=== PATIENT | female | born 1985 | race Caucasian/White ===

== ENCOUNTER → 2018-01-17 19:50 | Outpatient (CLI) | payer OTHER, SELFPAY ==
[2018-01-21 11:33] LABS: HPV APTIMA, High Risk Negative (Negative)
== END ==
PROVIDERS: Family Provider Family Medicine; PCP Family Medicine; Visit Provider Obstetrics & Gynecology
DX: Z12.4 Encounter for screening for malignant neoplasm of cervix (principal)
CPT/HCPCS: 88175; G0145

== ENCOUNTER → 2020-06-19 | Outpatient (CLI) | payer OTHER, SELFPAY ==
[2020-06-17 08:20] VITALS: BMI 43.0
--- NOTE | 2020-06-19 14:49 | US_ITS ---
STUDY: ULTRASOUND TRANSVAGINAL CLINICAL: Female, 34 years old. PELVIC PAIN TECHNIQUE: Transvaginal and transabdominal COMPARISON: None. FINDINGS: Normal uterine size measuring 9.5 x 4.8 x 4.5 cm.. There are no myometrial masses. Normal endometrial thickness measuring 14 mm. The endometrium is hyperechoic. There are no endometrial masses, and there is no fluid in the endometrial cavity. Normal uterine cervix. Normal right ovary, measuring 3.1 x 3.0 x 2.3 cm. Normal left ovary, measuring 3.4 x 2.5 x 2.3 cm. There is no free fluid in the pelvis. Polycystic ovary disease: No. US/Transvaginal Non- IMPRESSION: Study within normal limits. Electronically Signed: Hieu Waddell MD at 16:08 EDT , Service support ,
--- NOTE | 2020-06-19 14:49 | US_ITS ---
STUDY: ULTRASOUND TRANSVAGINAL CLINICAL: Female, 34 years old. PELVIC PAIN TECHNIQUE: Transvaginal and transabdominal COMPARISON: None. FINDINGS: Normal uterine size measuring 9.5 x 4.8 x 4.5 cm.. There are no myometrial masses. Normal endometrial thickness measuring 14 mm. The endometrium is hyperechoic. There are no endometrial masses, and there is no fluid in the endometrial cavity. Normal uterine cervix. Normal right ovary, measuring 3.1 x 3.0 x 2.3 cm. Normal left ovary, measuring 3.4 x 2.5 x 2.3 cm. There is no free fluid in the pelvis. Polycystic ovary disease: No. US/Pelvic (Non ) IMPRESSION: Study within normal limits. Electronically Signed: Hieu Waddell MD at 16:08 EDT , Service support ,
== END | disposition home or self-care (01) ==
PROVIDERS: PCP Family Medicine; Referring Provider Nurse Practitioner Women's Health; Visit Provider Nurse Practitioner Women's Health
DX: R10.2 Pelvic and perineal pain (principal); E28.2 Polycystic ovarian syndrome
CPT/HCPCS: 76830; 76856; 93976

== ENCOUNTER → 2021-08-09 07:25 | Outpatient (CLI) | payer OTHER, SELFPAY ==
[2021-08-09 08:28] LABS: Cholesterol 197 mg/dL (200); Glucose 93 mg/dL (74-106); High Density Lipoprotein 50 mg/dL; Thyroid Stim Hormone (TSH) 1.15 uIU/mL (0.358-3.74); Triglycerides 69 mg/dL; Very Low Density Lipoprotein 14 mg/dL (5-40)
== END ==
PROVIDERS: PCP Family Medicine; Referring Provider Obstetrics & Gynecology; Visit Provider Obstetrics & Gynecology
DX: Z13.29 Encounter for screening for other suspected endocrine disorder (principal); Z13.220 Encounter for screening for lipoid disorders; Z13.1 Encounter for screening for diabetes mellitus
CPT/HCPCS: 36415; 80061; 82947; 84443

== ENCOUNTER → 2022-08-14 | Outpatient (CLI) | payer OTHER, SELFPAY ==
[2022-08-23 09:24] LABS: HPV APTIMA, High Risk Negative (Negative)
== END | disposition home or self-care (01) ==
LOC: LABSPEC 17:05
PROVIDERS: PCP Family Medicine; Referring Provider Obstetrics & Gynecology; Visit Provider Obstetrics & Gynecology
DX: Z12.4 Encounter for screening for malignant neoplasm of cervix (principal)
CPT/HCPCS: 87624; 88175; G0145

== ENCOUNTER → 2022-08-22 | Outpatient (CLI) | payer OTHER, SELFPAY ==
[2022-08-22 09:46] LABS: Estradiol 161.3 pg/mL
[2022-08-24 16:52] LABS: Glucose 79 mg/dL (74-106)
[2022-08-24 17:20] LABS: Hemoglobin A1c 5.5 % (3.8-5.6)
[2022-08-28 15:30] LABS: Testosterone Free 1.3 pg/mL (0.0-4.2)
[2022-09-01 13:08] LABS: Testosterone, % Free 2.38 % (0.50-2.80); Testosterone, Free 0.69 ng/dL (0.10-0.85); Testosterone, Total 29 ng/dL (8-60)
== END | disposition home or self-care (01) ==
LOC: LAB 08:21
PROVIDERS: PCP Family Medicine; Visit Provider Obstetrics & Gynecology
DX: E28.2 Polycystic ovarian syndrome (principal); Z13.1 Encounter for screening for diabetes mellitus
CPT/HCPCS: 36415; 82627; 82670; 82947; 83036; 84402; 84403; 84443; 82626

== ENCOUNTER → 2022-08-27 | Outpatient (CLI) | payer OTHER, SELFPAY ==
--- NOTE | 2022-08-27 07:31 | US_ITS ---
STUDY: ULTRASOUND OF THE FEMALE PELVIS - LIMITED REASON FOR EXAM: Female, 37 years old history of polycystic ovaries. TECHNIQUE: Transabdominal and Transvaginal TECHNICAL QUALITY: Adequate. COMPARISON: Comparison is made with prior examination dated 06/19/2020. FINDINGS: The uterus is anteverted and is in a midline position. The uterus measures 9.4 x 4.9 x 4.7 cm. Normal uterine cervix. The endometrium measures 8 mm in thickness, and is heterogeneous (striated). There is no demonstrated endometrial mass. There is no demonstrated myometrial mass. The right ovary measures 2.3 cm x 3.3 cm x 3.5 cm. There is no right ovarian cyst or ovarian mass. There is no visualized right adnexal mass or complex lesion. There is normal arterial and normal venous vascularity. The left ovary measures 2.2 cm x 2.3 cm x 2.8 cm. Multiple small subcortical follicles are seen in the left ovary suggestive of polycystic ovary. There is no visualized left adnexal mass or complex lesion. There is normal arterial and normal venous vascularity. There is no fluid in the cul-de-sac. US/Transvaginal Non- IMPRESSION: Findings consistent with polycystic ovary on the left side. Electronically Signed: Davis Smith MD at 14:03 EDT ,
--- NOTE | 2022-08-27 07:31 | US_ITS ---
STUDY: ULTRASOUND OF THE FEMALE PELVIS - LIMITED REASON FOR EXAM: Female, 37 years old history of polycystic ovaries. TECHNIQUE: Transabdominal and Transvaginal TECHNICAL QUALITY: Adequate. COMPARISON: Comparison is made with prior examination dated 06/19/2020. FINDINGS: The uterus is anteverted and is in a midline position. The uterus measures 9.4 x 4.9 x 4.7 cm. Normal uterine cervix. The endometrium measures 8 mm in thickness, and is heterogeneous (striated). There is no demonstrated endometrial mass. There is no demonstrated myometrial mass. The right ovary measures 2.3 cm x 3.3 cm x 3.5 cm. There is no right ovarian cyst or ovarian mass. There is no visualized right adnexal mass or complex lesion. There is normal arterial and normal venous vascularity. The left ovary measures 2.2 cm x 2.3 cm x 2.8 cm. Multiple small subcortical follicles are seen in the left ovary suggestive of polycystic ovary. There is no visualized left adnexal mass or complex lesion. There is normal arterial and normal venous vascularity. There is no fluid in the cul-de-sac. US/Pelvic (Non ) IMPRESSION: Findings consistent with polycystic ovary on the left side. Electronically Signed: Davis Smith MD at 14:03 EDT ,
== END | disposition home or self-care (01) ==
PROVIDERS: PCP Family Medicine; Visit Provider Obstetrics & Gynecology
DX: E28.2 Polycystic ovarian syndrome (principal)
CPT/HCPCS: 76830; 76856

== ENCOUNTER → 2023-03-27 | Outpatient (CLI) | payer OTHER, SELFPAY ==
[2023-03-27 09:56] LABS: Cholesterol 178 mg/dL (200); High Density Lipoprotein 57 mg/dL; Triglycerides 60 mg/dL; Very Low Density Lipoprotein 12 mg/dL (5-40)
[2023-03-30 13:08] LABS: Vitamin D 1,25-Dihydroxy 31.1 pg/mL (24.8-81.5)
== END | disposition home or self-care (01) ==
PROVIDERS: PCP Family Medicine; Referring Provider Obstetrics & Gynecology; Visit Provider Obstetrics & Gynecology
DX: E28.2 Polycystic ovarian syndrome (principal)
CPT/HCPCS: 36415; 80061; 82652

== ENCOUNTER → 2023-07-06 | Outpatient (CLI) | payer BC, SELFPAY | END | disposition home or self-care (01) | LOC: SL 09:16 | PROVIDERS: PCP Family Medicine; Referring Provider Nurse Practitioner Acute Care; Visit Provider Nurse Practitioner Acute Care | DX: G47.10 Hypersomnia, unspecified (principal) | CPT/HCPCS: 95806 ==

== ENCOUNTER 2024-03-13 11:30 | Outpatient (RCR) | payer BC, SELFPAY | END 2024-03-21 23:59 | LOC: NS 11:30 | PROVIDERS: PCP Family Medicine; Referring Provider Physician Assistant; Visit Provider Physician Assistant | DX: Z71.3 Dietary counseling and surveillance (principal); E66.01 Morbid (severe) obesity due to excess calories; Z68.42 Body mass index [BMI] 45.0-49.9, adult | CPT/HCPCS: 97802; 97803 ==

== ENCOUNTER 2024-04-19 08:00 | Outpatient (RCR) | payer BC, SELFPAY | END 2024-04-21 23:59 | LOC: NS 08:00 | PROVIDERS: PCP Family Medicine; Referring Provider Physician Assistant; Visit Provider Physician Assistant | DX: Z71.3 Dietary counseling and surveillance (principal); E66.01 Morbid (severe) obesity due to excess calories; Z68.42 Body mass index [BMI] 45.0-49.9, adult | CPT/HCPCS: 97803 ==

== ENCOUNTER 2024-05-03 16:22 | Outpatient (RCR) | payer BC, SELFPAY | END 2024-05-21 23:59 | LOC: NS 16:22 | PROVIDERS: PCP Family Medicine; Referring Provider Physician Assistant; Visit Provider Physician Assistant | DX: Z71.3 Dietary counseling and surveillance (principal); E66.01 Morbid (severe) obesity due to excess calories; Z68.42 Body mass index [BMI] 45.0-49.9, adult | CPT/HCPCS: 97803 ==

== ENCOUNTER 2024-06-12 16:30 | Outpatient (RCR) | payer BC, SELFPAY | END 2024-06-21 23:59 | LOC: NS 16:30 | PROVIDERS: PCP Family Medicine; Referring Provider Physician Assistant; Visit Provider Physician Assistant | DX: Z71.3 Dietary counseling and surveillance (principal); E66.01 Morbid (severe) obesity due to excess calories; Z68.42 Body mass index [BMI] 45.0-49.9, adult | CPT/HCPCS: 97803 ==

== ENCOUNTER 2024-07-10 16:30 | Outpatient (RCR) | payer BC, SELFPAY | END 2024-07-22 23:59 | LOC: NS 16:30 | PROVIDERS: PCP Family Medicine; Referring Provider Physician Assistant; Visit Provider Physician Assistant | DX: Z71.3 Dietary counseling and surveillance (principal); E66.01 Morbid (severe) obesity due to excess calories; Z68.42 Body mass index [BMI] 45.0-49.9, adult | CPT/HCPCS: 97803 ==

== ENCOUNTER 2024-08-07 16:32 | Outpatient (RCR) | payer BC, SELFPAY | END 2024-08-21 23:59 | LOC: NS 16:32 | PROVIDERS: PCP Family Medicine; Referring Provider Physician Assistant; Visit Provider Physician Assistant | DX: Z71.3 Dietary counseling and surveillance (principal); E66.01 Morbid (severe) obesity due to excess calories; Z68.42 Body mass index [BMI] 45.0-49.9, adult | CPT/HCPCS: 97803 ==

== ENCOUNTER 2024-08-29 08:34 | Outpatient (RCR) | payer BC, SELFPAY | END 2024-09-21 23:59 | LOC: NS 08:34 | PROVIDERS: PCP Family Medicine; Referring Provider Physician Assistant; Visit Provider Physician Assistant | DX: Z71.3 Dietary counseling and surveillance (principal); E66.01 Morbid (severe) obesity due to excess calories; Z68.42 Body mass index [BMI] 45.0-49.9, adult | CPT/HCPCS: 97803 ==

== ENCOUNTER → 2024-08-30 | Outpatient (CLI) | payer BC, SELFPAY ==
[2024-08-30 07:21] LABS: Absolute Lymphocyte Count 1.57 X10^3/uL (0.83-4.51); Absolute Neutrophil Count 3.7 X10^3/uL (2.0-7.7); Basophil# 0.05 X10^3/uL; Basophil% 0.8 % (0-1); Eosinophil# 0.13 X10^3/uL; Eosinophils% 2.2 % (0-5); Hematocrit 39.3 % (37-47); Hemoglobin 12.1 g/dL (12.0-15.0); Lymphocyte # 1.57 X10^3/ul (0.83-4.51); Lymphocyte % 26.6 % (19-41); Mean Corp Hgb Conc 30.8 g/dL (32-36); Mean Corpuscular Volume 81.2 fL (81-99); Monocyte# 0.42 X10^3/uL; Monocyte% 7.1 % (0-10); NRBC Flagged by Analyzer 0 % (0-5); Neutrophil # 3.71 X10^3/uL (2.7-7.7); Platelet Count 350 K/mm3 (150-450); RBC Distribution Width CV 15.5 % (11.6-14.6); RBC Distribution Width SD 46.1 fl (35.1-43.9); Red Blood Count 4.84 M/mm3 (4.2-5.4); White Blood Count 5.9 K/mm3 (4.4-11.0)
[2024-08-30 07:38] LABS: ALB/GLOB Ratio 1.1 RATIO (0.9-2.4); AST(SGOT) 13 U/L (15-37); Alanine Aminotransfer ALT/SGPT 22 U/L (13-56); Albumin, Serum 3.6 g/dL (3.2-5.0); Alkaline Phosphatase 70 U/L (45-117); Anion Gap 6 (5-15); BUN 18 mg/dL (7-18); BUN/Creat Ratio 21.4 RATIO (10-20); Calcium,Total 8.9 mg/dL (8.5-10.1); Chloride 110 mmol/L (98-107); Cholesterol 167 mg/dL (200); Creatinine, Serum 0.84 mg/dL (0.55-1.02); EST Glomerular Filtration Rate 81 mL/min (>60); Est Glom Filt Rate - Afr Amer 98 mL/min (>60); Globulin 3.3 g/dL (2.2-4.2); Glucose 106 mg/dL (74-106); High Density Lipoprotein 55 mg/dL; Potassium 4.3 mmol/L (3.5-5.1); Protein, Total 6.9 g/dL (6.4-8.2); Sodium Level 140 mmol/L (136-145); Triglycerides 82 mg/dL; Very Low Density Lipoprotein 16 mg/dL (5-40)
[2024-08-30 08:12] LABS: Vitamin D,25 Hydroxy 43.6 ng/mL
[2024-08-30 09:46] LABS: Hemoglobin A1c 5.4 % (3.8-5.6)
== END | disposition home or self-care (01) ==
PROVIDERS: PCP Family Medicine; Referring Provider Obstetrics & Gynecology; Visit Provider Obstetrics & Gynecology
DX: Z13.1 Encounter for screening for diabetes mellitus (principal); Z13.220 Encounter for screening for lipoid disorders; Z13.21 Encounter for screening for nutritional disorder; Z13.0 Encounter for screening for diseases of the blood and blood-forming organs and certain disorders involving the immune mechanism; Z13.29 Encounter for screening for other suspected endocrine disorder
CPT/HCPCS: 36415; 80053; 80061; 82306; 83036; 84443; 85025

== ENCOUNTER 2024-10-09 16:24 | Outpatient (RCR) | payer BC, SELFPAY | END 2024-10-21 23:59 | LOC: NS 16:24 | PROVIDERS: PCP Family Medicine; Referring Provider Physician Assistant; Visit Provider Physician Assistant | DX: Z71.3 Dietary counseling and surveillance (principal); E66.01 Morbid (severe) obesity due to excess calories; Z68.42 Body mass index [BMI] 45.0-49.9, adult | CPT/HCPCS: 97803 ==

== ENCOUNTER 2024-11-08 16:20 | Outpatient (RCR) | payer BC, SELFPAY | END 2024-11-21 23:59 | LOC: NS 16:20 | PROVIDERS: PCP Family Medicine; Referring Provider Physician Assistant; Visit Provider Physician Assistant | DX: Z71.3 Dietary counseling and surveillance (principal); E66.01 Morbid (severe) obesity due to excess calories; Z68.42 Body mass index [BMI] 45.0-49.9, adult | CPT/HCPCS: 97803 ==

== ENCOUNTER 2025-01-10 16:09 | Outpatient (RCR) | payer BC, SELFPAY | END 2025-01-19 23:59 | LOC: NS 16:09 | PROVIDERS: PCP Family Medicine; Referring Provider Physician Assistant; Visit Provider Physician Assistant | DX: Z71.3 Dietary counseling and surveillance (principal); E66.01 Morbid (severe) obesity due to excess calories | CPT/HCPCS: 97803 ==

== ENCOUNTER → 2025-09-22 | Outpatient (CLI) | payer OTHER, SELFPAY ==
--- OUTSIDE RECORDS SUMMARY | 2025-09-22 07:21 | XMS RPT_ITS | CCD ---
Author Organization [facility] Care Team Providers Care Television Technician Name Role Phone Casper Tariq MD Primary Care Provider [phone] Dr. Casper Tariq Primary Care Provider Dr. Casper Tariq Referring Provider [phone] Dr. Khloe Rodriguez Attending Provider Casper Tariq MD Primary Care Provider Casper Tariq MD Primary Care Provider Dr. Casper Tariq Primary Care Provider Dr. Casper Tariq Referring Provider Dr. Khloe Rodriguez Attending Provider Rene MAIL MESSENGER CONTRACTOR, MAIL MESSENGER CONTRACTOR-C Eliza Attending Provider Casper Tariq MD Primary Care Provider Hortensia MOMIN.PASTRY ASSISTANT, Nolvia Unavailable Jina Garsia PA-C Unavailable CASPER TARIQ Primary Care Unavailable CASPER TARIQ Primary Care Unavailable CASPER TARIQ Attending Unavailable CASPER TARIQ Primary Care Unavailable Jina Ramsey Referring Unavailable Casper Tariq Primary Care Unavailable Jina Ramsey Attending Unavailable Casper Tariq Primary Care Unavailable Jina Ramsey Referring Unavailable Jina Ramsey Attending Unavailable Casper Tariq Primary Care Unavailable Jina Ramsey Referring Unavailable Jina Ramsey Attending Unavailable Khloe Rodriguez Attending Unavailable Khloe Rodriguez Referring Unavailable Casper Tariq Primary Care Unavailable Khloe Rodriguez Attending Unavailable Casper Tariq Primary Care Unavailable Jeremy, Casper Referring Unavailable [facility] Unavailable Garsia PA, Jina Referring Unavailable Garsia PA, Jina Attending Unavailable [facility] Care Unavailable Garsia PA, Jina Attending Unavailable Garsia PA, Jina Referring Unavailable [facility] Care Unavailable Garsia PA, Jina Attending Unavailable Garsia PA, Jina Referring Un[facility] Garsia PA, Jina Referring Unavailable Garsia PA, Jina Attending [facility]available Garsia PA, Jina Attending Unavailable Garsia PA, Jina Referring Unavailable [facility] Primary [facility] Unavailable Garsia PA, Jina Referring Unavailable Garsia PA, Jina Attending Unavailable [facility] Care Unavailable Garsia PA, Jina Referring Unavailable Garsia PA, Jina Attending Unavailable [facility] Unavailable Garsia PA, Jina Attending Unavailable Garsia PA, Jina [facility]erring [facility] Garsia PA, Jina Referring Unavailable Garsia PA, Jina Attending Unavailable Allergies Allergy Classification Reported Allergen(s) Allergy Type Date of Onset Reaction(s) Facility (15 sources) Phentermine; Translations: [PHENTERMINE HCL] Drug Allergy 12-17-2015 Other: See Comments [facility] Work Phone: Medications Current Medications Medication Drug Class(es) Dates Sig (Normalized) Sig (Original) cetirizine hydrochloride 10 mg oral tablet (5 sources) Histamine-1 Receptor Antagonist take 1 tablet by mouth once daily cetirizine (ZYRTEC) 10 mg tablet Take 10 mg by mouth once daily. Active COMPOUNDED PRESCRIPTION (14 sources) Start: 11-29-2018 End: 12-09-2024 COMPOUNDED PRESCRIPTION Indications: Migraine with aura and with status migrainosus, not intractable Massage therapy for the treatment and prevention of migraine headaches. Once every other week for 10 treatments. Dx: G43.101 1 Device 11/29/2018 12/09/2024 Discontinued Start: 11-29-2018 COMPOUNDED PRE SCRIPTION Indications: Migraine with aura and with status migrainosus, not intractable Massage therapy for the treatment and prevention of migraine headaches. Once every other week for 10 treatments. Dx: G43.101 1 Device 11/29/2018 Active Start: 11-29-2018 COMPOUNDED PRE SCRIPTION Indications: Migraine with aura and with status migrainosus, not intractable Massage therapy for the treatment and prevention of migraine headaches. Once every other week for 10 treatments. Dx: G43.101 1 Device 0 11/29/2018 Active Comment on above: Massage therapy for the treatment and prevention of migraine headaches. Once every other week for 10 treatments. Dx: G43.101 cyclobenzaprine hydrochloride 10 mg oral tablet (5 sources) Muscle Relaxant Start: 2023 End: 2024 take 1 tablet by mouth every eight hours as needed cyclobenzaprine (FLEXERIL) 10 mg tablet Take 1 tablet by mouth three times a day as needed for muscle spasm. 21 tablet 06/21/2024 12/09/2024 Discontinued doxycycline hyclate 100 mg oral tablet (2 sources) Tetracycline-clas s Drug Start: 2024 End: 2024 take 1 tablet by mouth twice daily doxycycline (VIBRA-TABS) 100 mg tablet Indications: Sinobronchitis Take 1 tablet by mouth two times a day for 7 days. 14 tablet 12/04/2024 12/11/2024 Active meclizine hydrochloride 12.5 mg oral tablet (1 source) Antiemetic Start: 2019 End: 2021 take 1 tablet by mouth every six hours as needed meclizine (ANTIVERT) 12.5 mg tab Take 1 tablet by mouth every 6 hours as needed (dizziness). 30 tablet 1 09/06/2020 08/01/2022 Discontinued Comment on above: Take 1 tablet by j luis th every 6 hours as needed (dizziness). medroxyPROGESTERone acetate 5 mg oral tablet (3 sources) Progestin Start: 2022 take 5 mg by mouth once daily Medroxyprogesterone Active 5 MG PO daily 5 March 25, 2023 12:00am if no menses by cycle day 35-40 take provera 24 hr metFORMIN hydrochloride 500 mg extended release oral tablet (11 sources) Biguanide Start: 2022 metFORMIN ER (GLUCOPHAGE XR) 500 mg 24 hr tablet 06/05/2023 Active Start: 04-13-2023 take 500 mg by mouth twice daily Metformin Active 500 MG PO TWICE A DAY April 13, 2023 8:26am Start: 03-25-2023 End: 04-13-2023 take 500 mg by mouth once daily Metformin Discontinued 500 MG PO DAILY March 25, 2023 12:00am April 13, 2023 8:26am Multivitamin preparation (5 sources) Start: 08-26-2023 take 1 tablet by mouth once daily Multivitamin Active 1 TABLET PO DAILY August 26, 2023 12:00am Start: 08-05-2021 End: 08-14-2022 take 1 tablet by mouth once daily Multivitamin Discontinued 1 TABLET PO DAILY August 05, 2021 12:00am August 14, 2022 8:47am nitrofurantoin, macrocrystals 25 mg / nitrofurantoin, monohydrate 75 mg oral capsule (2 sources) Nitrofuran Antibacterial Start: 12-21-2022 End: 12-26-2022 take 1 capsule by mouth twice daily nitrofurantoin monohydrate and macrocrystal (MACROBID) 100 mg capsule Indications: Urinary frequency Take 1 capsule by mouth twice daily for 5 days. 10 capsule 0 12/21/2022 12/26/2022 Active Comment on above: Take 1 capsule by [facility] twice daily for 5 days. predniSONE 20 mg oral tablet (8 sources) Start: 12-04-2024 End: 12-09-2024 take 2 tablets by mouth once daily predniSONE (DELTASONE) 20 mg tablet Indications: Sinobronchitis Take 2 tablets by mouth once daily for 5 days. 10 tablet 12/04/2024 12/09/2024 Discontinued Start: 06-21-2024 End: 12-09-2024 predniSONE (DELTASONE) 10 mg tablet Take 4 tabs daily for 3 days, then 2 tabs daily for 3 days, then 1 tab daily for 3 days with food. 21 tablet 06/21/2024 12/09/2024 Discontinued Start: 08-01-2022 End: 08-10-2022 take 4 tablets by mouth once daily, then take 2 tablets by mouth once daily, then take 1 tablet by mouth once daily predniSONE (DELTASONE) 10 mg tablet Indications: Allergic dermatitis due to poison mable Take 4 tablets by mouth once daily for 3 days, THEN 2 tablets once daily for 3 days, THEN 1 tablet once daily for 3 days. Take with food.. 21 tablet 0 08/01/2022 08/10/2022 Active Comment on above: Take 4 tablets by mo uth once daily for 3 days, THEN 2 tablets once daily for 3 days, THEN 1 tablet once daily for 3 days. Take with food.. SUMAtriptan 100 mg oral tablet (19 sources) Serotonin-1b and Serotonin-1d Receptor Agonist Start: 12-09-2024 take 1 tablet by mouth every hour, then take 2 tablets by mouth every twenty-four hours SUMAtriptan (IMITREX) 100 mg tablet One table by mouth with onset of headache. Can repeat in and hour but only 2 tabs in 24 hrs. 12 tablet 3 12/09/2024 Active Start: 06-17-2020 take 1 tablet by j luis th every two hours Sumatriptan Succinate (Imitrex) 50 mg tablet Active 0 PO .COMPLEX June 17, 2020 12:00am take 1 tab at onset of headache; if no relief may repeat 1 tab after at least 2 hrs; max = 4 tabs/24 hr PO Start: 05-22-2020 End: 12-09-2024 take 1 tablet by mouth every hour, then take 2 tablets by mouth every twenty-four hours SUMAtriptan (IMITREX) 100 mg tablet One table by mouth with onset of headache. Can repeat in and hour but only 2 tabs in 24 hrs. 12 tablet 3 05/22/2020 12/09/2024 Discontinued Comment on above: One table by mouth w ith onset of headache. Can repeat in and hour but only 2 tabs in 24 hrs. Completed/Discontinued Medications Medication Drug Class(es) Dates Sig (Normalized) Sig (Original) [id number] 200 actuat albuterol 0.09 mg/actuat metered dose inhaler (18 sources) beta2-Adrenergic Agonist Start: 06-17-2020 End: 08-14-2022 take 1 puff(s) by inhalation every six hours Albuterol Sulfate Discontinued 2 PUFF INHALATION EVERY 6 HOURS June 17, 2020 12:00am August 14, 2022 8:47am Start: 05-22-2020 End: 12-09-2024 take 1 puff(s) by inhalation every four hours as needed albuterol HFA (PROVENTIL HFA, VENTOLIN HFA) 90 mcg/actuation inhaler Indications: Exercise-induced asthma Inhale 1 Puff as instructed every 4 hours as needed. 1 Inhaler 3 05/22/2020 12/09/2024 Discontinued Comment on above: Inhale 1 Puff as ins tructed every 4 hours as needed. Problems Active Problems Problem Classification Problem Date Documented Da te Episodic/Chronic Administrative/social admission (2 sources) Dietary counseling and surveillance; Translations: [Dietary counseling and surveillance] Onset: 01-20-2025 Episodic Asthma (15 sources) Exercise-induced asthma; Translations: [Exercise induced bronchospasm] 12-17-2015 Chronic Cardiac dysrhythmias (14 sources) Ventricular premature beats; Translations: [Ventricular premature depolarization] Onset: 12-11-2020 12-11-2020 Chronic Headache; including migraine (15 sources) Migraine with aura; Translations: [Migraine with aura, not intractable, with status migrainosus] Onset: 12-17-2015 12-17-2015 Chronic Malaise and fatigue (3 sources) Fatigue; Translations: [Other fatigue] 06-10-2023 Episodic Other complications of ; puerperium affecting management of mother (4 sources) Deliveries by 06-21-2022 Episodic Other endocrine disorders (19 sources) Polycystic ovary; Translations: [Polycystic ovarian syndrome] 12-17-2015 Chronic Other endocrine disorders (4 sources) Polycystic ovarian syndrome; Translations: [Polycystic ovaries] Chronic Other nutritional; endocrine; and metabolic disorders (15 sources) Morbid obesity; Translations: [Morbid (severe) obesity due to excess calories] 04-23-2017 Chronic Other nutritional; endocrine; and metabolic disorders (2 sources) Obese class III; Translations: [Morbid (severe) obesity due to excess calories] 06-10-2023 Chronic Other nutritional; endocrine; and metabolic disorders (4 sources) Morbid (severe) obesity due to excess calories; Translations: [Morbid obesity] Onset: 01-20-2025 06-10-2023 Chronic Other upper respiratory infections (1 source) Chronic sinusitis; Translations: [Chronic sinusitis, unspecified] 12-04-2024 Chronic Residual codes; unclassified (2 sources) Daytime hypersomnia; Translations: [Hypersomnia, unspecified] 06-25-2023 Chronic Residual codes; unclassified (1 source) Hypersomnia, unspecified; Translations: [Hypersomnia, unspecified] 06-25-2023 Chronic Residual codes; unclassified (15 sources) FH: Thyroid disorder; Translations: [Family history of other endocrine, nutritional and metabolic diseases] Onset: 09-06-2020 09-06-2020 Episodic Sprains and strains (2 sources) Strain of neck muscle; Translations: [Strain of muscle, fascia and tendon at neck level, initial encounter] 06-21-2024 Episodic Past or Other Problems Problem Classification Problem Date Documented Da te Episodic/Chronic Allergic reactions (15 sources) Contact dermatitis due to poison mable; Translations: [Allergic contact dermatitis due to plants, except food] Onset: 02-12-2013 Episodic Cardiac dysrhythmias (14 sources) Sinus tachycardia; Translations: [Tachycardia, unspecified] Onset: 12-11-2020 12-11-2020 Episodic Genitourinary symptoms and ill-defined conditions (12 sources) Increased frequency of urination; Translations: [Frequency of micturition] Onset: 01-24-2023 Episodic Headache; including migraine (5 sources) Headache; Translations: [Headache] Onset: 01-30-2010 Resolved: 01-06-2012 01-06-2012 Episodic Hypertension complicating ; childbirth and the puerperium (5 sources) -induced hypertension; Translations: [Gestational [-induced] hypertension without significant proteinuria, unspecified trimester] Onset: 01-20-2012 Resolved: 03-28-2012 03-28-2012 Episodic Other and unspecified benign neoplasm (8 sources) Benign neoplasm of skin of upper arm; Translations: [Melanocytic nevi of unspecified upper limb, including shoulder] Onset: 02-12-2013 08-19-2016 Episodic Other and unspecified benign neoplasm (14 sources) Melanocytic nevus of neck; Translations: [Melanocytic nevi of scalp and neck] Onset: 02-12-2013 08-19-2016 Episodic Other and unspecified benign neoplasm (6 sources) Dysplastic nevus of skin; Translations: [Melanocytic nevi of unspecified upper limb, including shoulder] Onset: 02-12-2013 08-19-2016 Episodic Other complications of (5 sources) High risk ; Translations: [Supervision of high risk , unspecified, unspecified trimester] Onset: 01-20-2012 Resolved: 02-18-2012 02-18-2012 Episodic Other connective tissue disease (5 sources) Pain in limb; Translations: [Pain in unspecified limb] Onset: 07-22-2007 Resolved: 01-06-2012 01-06-2012 Episodic Other connective tissue disease (5 sources) Neuropathy; Translations: [Neuralgia, neuritis, and radiculitis, unspecified] Onset: 07-22-2007 Resolved: 01-06-2012 01-06-2012 Episodic Other and delivery including normal (5 sources) Normal in primigravida; Translations: [Encounter for supervision of normal first , unspecified trimester] Onset: 01-06-2012 Resolved: 01-20-2012 01-20-2012 Episodic Other screening for suspected conditions (not mental disorders or infectious disease) (20 sources) Patient encounter status; Translations: [Encounter for screening for diabetes mellitus] Onset: 12-17-2015 12-17-2015 Episodic Other skin disorders (5 sources) Ingrowing nail; Translations: [Ingrowing nail] Onset: 07-22-2007 Resolved: 01-06-2012 01-06-2012 Episodic Viral infection (14 sources) Verruca vulgaris; Translations: [Viral wart, unspecified] Onset: 02-12-2013 08-19-2016 Episodic Results Test Name Value Interpretation Reference Range Facility [facility] 12-09-2024 CNOV Office Visit (FAMPWS ) FABIAN BAUM ([id number]) 1985 F Date Time Provider Department 12/09/24 8:00 AM CASPER TARIQFREDDIE During your visit today, we recorded the following information about you: Pulse Blood pressure Weight Height 68/minute 108/82 115.2 kg 1.638 m Last Period 11/21/24 Casper Tariq MD 12/09/2024 8:34 AM Signed Chief Complaint Patient presents with: Physical HPI Fabian Baum is a 39 year old female who presents here today for Physical. Patient with Hx of exercise induced asthma, Migraines, morbif obesity, PVC's, PCOS. Has FHx of thyroid disease. Has been out of sumatriptan and getting headache's a few times a month. Not as often as they used to be. Patient has otherwise been doing well. Has been working with [employer] for weight loss. Past medical history, appointments, medications, allergies reviewed. Previous Medical History PAST MEDICAL HISTORY Diagnosis Date Actinic skin damage 02/12/2013 Atypical nevus of upper arm 02/12/2013 Exercise-induced asthma Family history of thyroid disease 09/06/2020 Melanocytic nevus of neck 02/12/2013 Migraine with aura and with status migrainosus, not intractable 12/17/2015 Morbid obesity due to excess calories (HCC) childhood Other proteinuria 01/24/202301/2023: 24 hr urine protein was normal. (check Q1-2 yrs) Polycystic ovaries has insulin resistance due to this PVC's (premature ventricular contractions) 12/11/2020 Per event monitor 09/[address] Rodriguez Sinus tachycardia 12/11/2020 Per event monitor 09/2020 Viral warts, unspecified 02/12/2013 Well adult exam 12/15/2013 Last done: 05/30/2019 Previous Surgical History PAST SURGICAL HISTORY Procedure Laterality Date DELIVERY ONLY 02/12/12 , low transverse ESSURE 2017 placed in both falopian tubes [facility] PAST SURGICAL HISTORY OF aprox. 1996 removal of bone spur pressing on nerve medial left foot STRESS ECHO 09/23/2020 normal TONSILLECTOMY PRIMARY/SECONDARY Tonsillectomy Family History FAMILY HISTORY Problem Relation Age of Onset Thyroid Mother delisa's, on synthroid Hypertension Mother Breast Cancer Mother other (hypercholesterolemia) Mother other (testicular cancer) Brother Diabetes Maternal Grandmother Thyroid Maternal Grandmother Hypertension Maternal Grandmother other (bladder cancer) Maternal Grandmother Older age, caught early Hypertension Maternal Grandfather Thyroid Paternal Grandmother other (SVT) Paternal Grandmother along with her mother, grandmother and aunt other (myesthenia gravis) Paternal Grandfather Diabetes Maternal Uncle Breast Cancer Other Cousin/Paternal Colon Cancer No Family History Prostate Cancer No Family History Ovarian cancer No Family History Uterine Cancer No Family History Coronary Artery Disease No Family History Patient Allergies ALLERGIES Allergen Reactions Adipex-P [Phentermi* Other: See Comments Palpitations/rapid HR Current Medications Current Outpatient Medications on File Prior to Visit Medication Sig doxycycline (VIBRA-TABS) 100 mg tablet Take 1 tablet by mouth two times a day for 7 days. predniSONE (DELTASONE) 20 mg tablet Take 2 tablets by mouth once daily for 5 days. cetirizine (ZYRTEC) 10 mg tablet Take 10 mg by mouth once daily. predniSONE (DELTASONE) 10 mg tablet Take 4 tabs daily for 3 days, then 2 tabs daily for 3 days, then 1 tab daily for 3 days with food. (Patient not taking: Reported on 12/04/2024) cyclobenzaprine (FLEXERIL) 10 mg tablet Take 1 tablet by mouth three times a day as needed for muscle spasm. metFORMIN ER (GLUCOPHAGE XR) 500 mg 24 hr tablet SUMAtriptan (IMITREX) 100 mg tablet One table by mouth with onset of headache. Can repeat in and hour but only 2 tabs in 24 hrs. (Patient not taking: Reported on 12/04/2024) albuterol HFA (PROVENTIL HFA, VENTOLIN HFA) 90 mcg/actuation inhaler Inhale 1 Puff as instructed every 4 hours as needed. COMPOUNDED PRESCRIPTION Massage therapy for the treatment and prevention of migraine headaches. Once every other week for 10 treatments. Dx: G43.101 No current facility-administered medications on file prior to visit. Social History Social History Tobacco Use Smoking status: Never Smokeless tobacco: Never Substance Use Topics Alcohol use: Yes Alcohol/week: 1.0 standard drink of alcohol Types: 1 Cans of Beer (12oz) per week Comment: Rarely Drug use: No Review of Symptoms REVIEW OF SYSTEMS GENERAL: No weight loss, malaise or fevers HEENT: see HPI, No changes in hearing or vision, no nose bleeds or other nasal problems NECK: Negative for lumps, goiter, pain and significant neck swelling RESPIRATORY: Negative for cough, hemoptysis, wheezing, COPD, dyspnea or shortness of breath CARDIOVASCULAR: Negative for chest pain, leg sw (more content not included)... Normal [facility] CNOVon 12-04-2024 CNOV Office Visit (UCWSTR ) FABIAN BAUM ([id number]) 1985 F Date Time Provider Department 12/04/24 7:30 AM [facility] During your visit today, we recorded the following information about you: Temperature Pulse Respiration Blood pressure 97.1 degrees 84/minute 16/minute 124/80 Weight 118.2 kg Ian Mcdowell APRN.PASTRY ASSISTANT 12/04/2024 8:08 AM Signed Subjective HPI HPI Fabian Baum is a 39 year old female who presents today for CC of sinus pressure, cough. This started 3 weeks ago. Has tried otc medication for relief. Symptoms are worsened by nothing. Risk factors sick exposures, hx of allergies. Nonsmoker. Denies possibility of being . .Patient presents with: Sinus Problem: sinus pressure, drainage, cough x 3 weeks PAST MEDICAL HISTORY Diagnosis Date Actinic skin damage 02/12/2013 Atypical nevus of upper arm 02/12/2013 Exercise-induced asthma Family history of thyroid disease 09/06/2020 Melanocytic nevus of neck 02/12/2013 Migraine with aura and with status migrainosus, not intractable 12/17/2015 Morbid obesity due to excess calories (HCC) childhood Other proteinuria 01/24/202301/2023: 24 hr urine protein was normal. (check Q1-2 yrs) Polycystic ovaries has insulin resistance due to this PVC's (premature ventricular contractions) 12/11/2020 Per event monitor 09/[address] Rodriguez Sinus tachycardia 12/11/2020 Per event monitor 09/2020 Viral warts, unspecified 02/12/2013 Well adult exam 12/15/2013 Last done: 05/30/2019 PAST SURGICAL HISTORY Procedure Laterality Date DELIVERY ONLY 02/12/12 , low transverse ESSURE 2017 placed in both falopian tubes [facility] PAST SURGICAL HISTORY OF aprox. 1996 removal of bone spur pressing on nerve medial left foot STRESS ECHO 09/23/2020 normal TONSILLECTOMY PRIMARY/SECONDARY Tonsillectomy ALLERGIES Adipex-P [Phentermine Hcl] MEDICATIONS cetirizine (ZYRTEC) 10 mg tablet Take 10 mg by mouth once daily. cyclobenzaprine (FLEXERIL) 10 mg tablet Take 1 tablet by mouth three times a day as needed for muscle spasm. metFORMIN ER (GLUCOPHAGE XR) 500 mg 24 hr tablet albuterol HFA (PROVENTIL HFA, VENTOLIN HFA) 90 mcg/actuation inhaler Inhale 1 Puff as instructed every 4 hours as needed. COMPOUNDED PRESCRIPTION Massage therapy for the treatment and prevention of migraine headaches. Once every other week for 10 treatments. Dx: G43.101 doxycycline (VIBRA-TABS) 100 mg tablet Take 1 tablet by mouth two times a day for 7 days. predniSONE (DELTASONE) 20 mg tablet Take 2 tablets by mouth once daily for 5 days. predniSONE (DELTASONE) 10 mg tablet Take 4 tabs daily for 3 days, then 2 tabs daily for 3 days, then 1 tab daily for 3 days with food. (Patient not taking: Reported on 12/04/2024) SUMAtriptan (IMITREX) 100 mg tablet One table by mouth with onset of headache. Can repeat in and hour but only 2 tabs in 24 hrs. (Patient not taking: Reported on 12/04/2024) FAMILY HISTORY Problem Relation Age of Onset Thyroid Mother delisa's, on synthroid Hypertension Mother Breast Cancer Mother other (hypercholesterolemia) Mother other (testicular cancer) Brother Diabetes Maternal Grandmother Thyroid Maternal Grandmother Hypertension Maternal Grandmother other (bladder cancer) Maternal Grandmother Older age, caught early Hypertension Maternal Grandfather Thyroid Paternal Grandmother other (SVT) Paternal Grandmother along with her mother, grandmother and aunt other (myesthenia gravis) Paternal Grandfather Diabetes Maternal Uncle Breast Cancer Other Cousin/Paternal Colon Cancer No Family History Prostate Cancer No Family History Ovarian cancer No Family History Uterine Cancer No Family History Coronary Artery Disease No Family History Social History Tobacco Use Smoking status: Never Smokeless tobacco: Never Substance Use Topics Alcohol use: Yes Alcohol/week: 1.0 standard drink of alcohol Types: 1 Cans of Beer (12oz) per week Comment: Rarely Drug use: No Review of Systems Constitutional: Negative for fever. HENT: Positive for congestion and sinus pain. Negative for ear pain, nosebleeds and sore throat. Respiratory: Positive for cough. Negative for shortness of breath and wheezing. Musculoskeletal: Negative for neck pain. Skin: Negative for itching and rash. Objective Blood pressure 124/80, pulse 84, temperature 36.2 ?C (97.1 ?F), resp. rate 16, weight 118.2 kg (260 lb 9.3 oz), last menstrual period 09/05/2020, SpO2 97%. Physical Exam Constitutional: General: She is not in acute distress. Appearance: She is not toxic-appearing or diaphoretic. HENT: Head: Normocephalic and atraumatic. Cardiovascular: Rate and Rhythm: Normal rate and regular rhythm. Heart sounds: Normal heart sounds, S1 normal and S2 normal. Pulmonary: Effort: Pulmona (more content not included)... Normal [facility] CBC W/Diff, Automatedon 10-0 9-2023 Absolute Lymph 1.57 X10 3/uL Normal 0.83-4.51 [facility] Comment on above: Performed By: #### L 500.4100, L100.0100, L501.9520, L506.1000, L501.9985, L500.4050 #### [facility] [address] [place], [address] Absolute Neut 3.7 X10 3/uL Normal 2.0-7.7 [facility] Comment on above: Performed By: #### L 500.4100, L100.0100, L501.9520, L506.1000, L501.9985, L500.4050 #### [facility] [address] [place], [address] Basophils/100 WBC (Bld) 0.8 % Normal 0-1 [facility] Comment on above: Performed By: #### L 500.4100, L100.0100, L501.9520, L506.1000, L501.9985, L500.4050 #### [facility] [address] [place], [address] Eosinophils/100 WBC (Bld) 2.2 % Normal 0-5 [facility] Comment on above: Performed By: #### L 500.4100, L100.0100, L501.9520, L506.1000, L501.9985, L500.4050 #### [facility] [address] [place], [address] Erythrocyte distribution width (RBC) [Ratio] 15.5 % High 11.6-14.6 [facility] Comment on above: Performed By: #### L 500.4100, L100.0100, L501.9520, L506.1000, L501.9985, L500.4050 #### [facility] [address] [place], [address] Hematocrit (Bld) [Volume fraction] 39.3 % Normal 37-47 [facility] Comment on above: Performed By: #### L 500.4100, L100.0100, L501.9520, L506.1000, L501.9985, L500.4050 #### [facility] [address] [place], [address] Hemoglobin (Bld) [Mass/Vol] 12.1 g/dL Normal 12.0-15.0 [facility] Comment on above: Performed By: #### L 500.4100, L100.0100, L501.9520, L506.1000, L501.9985, L500.4050 #### [facility] [address] [place], [address] IG% 0.300 Normal 0.0-0.9 [facility] Comment on above: Result Comment: IG% - Immature Granulocytes (promyelocytes, myelocytes and metamyelocytes) > 1% indicates that a LEFT SHIFT is Present. Performed By: #### L 500.4100, L100.0100, L501.9520, L506.1000, L501.9985, L500.4050 #### [facility] [address] [place], [address] Lymphocytes/100 WBC (Bld) 26.6 % Normal 19-41 [facility] Comment on above: Performed By: #### L 500.4100, L100.0100, L501.9520, L506.1000, L501.9985, L500.4050 #### [facility] [address] [place], [address] MCH (RBC) [Entitic mass] 25.0 pg Low 27.0-32.0 [facility] Comment on above: Performed By: #### L 500.4100, L100.0100, L501.9520, L506.1000, L501.9985, L500.4050 #### [facility] [address] [place], [address] MCHC (RBC) [Mass/Vol] 30.8 g/dL Low 32-36 [facility] Comment on above: Performed By: #### L 500.4100, L100.0100, L501.9520, L506.1000, L501.9985, L500.4050 #### [facility] [address] [place], [address] MCV (RBC) [Entitic vol] 81.2 fL Normal 81-99 [facility] Comment on above: Performed By: #### L 500.4100, L100.0100, L501.9520, L506.1000, L501.9985, L500.4050 #### [facility] [address] [place], [address] Monocytes/100 WBC (Bld) 7.1 % Normal 0-10 [facility] Comment on above: Performed By: #### L 500.4100, L100.0100, L501.9520, L506.1000, L501.9985, L500.4050 #### [facility] [address] [place], [address] Neutrophils/100 WBC (Bld) 63.0 % Normal 47-70 [facility] Comment on above: Performed By: #### L 500.4100, L100.0100, L501.9520, L506.1000, L501.9985, L500.4050 #### [facility] [address] [place], [address] Nucleated RBC (Bld) [#/Vol] 0 10*3/uL Normal 0-5 [facility] Comment on above: Performed By: #### L 500.4100, L100.0100, L501.9520, L506.1000, L501.9985, L500.4050 #### [facility] [address] [place], [address] Platelet mean volume (Bld) [Entitic vol] 10.0 fL Normal 6.2-12.0 [facility] Comment on above: Performed By: #### L 500.4100, L100.0100, L501.9520, L506.1000, L501.9985, L500.4050 #### [facility] [address] [place], [address] Platelets (Bld) [#/Vol] 350 10*3/uL Normal 150-450 [facility] Comment on above: Performed By: #### L 500.4100, L100.0100, L501.9520, L506.1000, L501.9985, L500.4050 #### [facility] [address] [place], [address] RBC (Bld) [#/Vol] 4.84 10*6/uL Normal 4.2-5.4 [facility] Comment on above: Performed By: #### L 500.4100, L100.0100, L501.9520, L506.1000, L501.9985, L500.4050 #### [facility] [address] [place], [address] RDW SD 46.1 fl High 35.1-43.9 [facility] Comment on above: Performed By: #### L 500.4100, L100.0100, L501.9520, L506.1000, L501.9985, L500.4050 #### [facility] [address] [place], [address] WBC (Bld) [#/Vol] 5.9 10*3/uL Normal 4.4-11.0 [facility] Comment on above: Performed By: #### L 500.4100, L100.0100, L501.9520, L506.1000, L501.9985, L500.4050 #### [facility] [address] [place], [address] Comprehensive Metabolic Prof flon 08-30-2024 Albumin [Mass/Vol] 3.6 g/dL Normal 3.2-5.0 [facility] Comment on above: Performed By: #### L 500.4100, L100.0100, L501.9520, L506.1000, L501.9985, L500.4050 #### [facility] [address] [place], [address] Albumin/Globulin [Mass ratio] 1.1 {ratio} Normal 0.9-2.4 [facility] Comment on above: Performed By: #### L 500.4100, L100.0100, L501.9520, L506.1000, L501.9985, L500.4050 #### [facility] [address] [place], [address] ALK P 70 U/L Normal 45-117 [facility] Comment on above: Performed By: #### L 500.4100, L100.0100, L501.9520, L506.1000, L501.9985, L500.4050 #### [facility] [address] [place], [address] ALT [Catalytic activity/Vol] 22 U/L Normal 13-56 [facility] Comment on above: Performed By: #### L 500.4100, L100.0100, L501.9520, L506.1000, L501.9985, L500.4050 #### [facility] [address] [place], [address] AST [Catalytic activity/Vol] 13 U/L Low 15-37 [facility] Comment on above: Performed By: #### L 500.4100, L100.0100, L501.9520, L506.1000, L501.9985, L500.4050 #### [facility] [address] [place], [address] Bilirubin [Mass/Vol] 0.30 mg/dL Normal 0.20-1.00 [facility] Comment on above: Result Comment: For patients on eltrombopag therapy, use of Dimension [place] TBIL is not recommended. Performed By: #### L 500.4100, L100.0100, L501.9520, L506.1000, L501.9985, L500.4050 #### [facility] [address] [place], [address] BUN/CRE 21.4 RATIO High 10-20 [facility] Comment on above: Performed By: #### L 500.4100, L100.0100, L501.9520, L506.1000, L501.9985, L500.4050 #### [facility] [address] [place], [address] CA,Total 8.9 mg/dL Normal 8.5-10.1 [facility] Comment on above: Performed By: #### L 500.4100, L100.0100, L501.9520, L506.1000, L501.9985, L500.4050 #### [facility] [address] [place], [address] Chloride [Moles/Vol] 110 mmol/L High 98-107 [facility] Comment on above: Performed By: #### L 500.4100, L100.0100, L501.9520, L506.1000, L501.9985, L500.4050 #### [facility] [address] [place], [address] CO2 [Moles/Vol] 24.0 mmol/L Normal 21.0-32.0 [facility] Comment on above: Performed By: #### L 500.4100, L100.0100, L501.9520, L506.1000, L501.9985, L500.4050 #### [facility] [address] [place], [address] Creatinine [Mass/Vol] 0.84 mg/dL Normal 0.55-1.02 [facility] Comment on above: Result Comment: The validity of the calculated GFR GFRAA in patients over 70 years has not been determined. Clinical correlation is essential. Performed By: #### L 500.4100, L100.0100, L501.9520, L506.1000, L501.9985, L500.4050 #### [facility] [address] [place], [address] EST GFR - AA 98 mL/min Normal >60 [facility] Comment on above: Result Comment: Afri can [place]i GFR Calc Performed By: #### L 500.4100, L100.0100, L501.9520, L506.1000, L501.9985, L500.4050 #### [facility] [address] [place], [address] GAP 6 Normal 5-15 [facility] Comment on above: Performed By: #### L 500.4100, L100.0100, L501.9520, L506.1000, L501.9985, L500.4050 #### [facility] [address] [place], [address] GFR/1.73 sq M.predicted among non-blacks MDRD (S/P/Bld) [Vol rate/Area] 81 mL/min/{1.73_m2} Normal >60 [facility] Comment on above: Result Comment: Non- GFR Calc Performed By: #### L 500.4100, L100.0100, L501.9520, L506.1000, L501.9985, L500.4050 #### [facility] [address] [place], [address] Globulin (S) [Mass/Vol] 3.3 g/dL Normal 2.2-4.2 [facility] Comment on above: Performed By: #### L 500.4100, L100.0100, L501.9520, L506.1000, L501.9985, L500.4050 #### [facility] [address] [place], [address] Glucose [Mass/Vol] 106 mg/dL Normal 74-106 [facility] Comment on above: Result Comment: Fast ing Glucose result from 100 to 125 mg/dL suggests IMPAIRED HOMEOSTASIS per A.D.A. criteria. Performed By: #### L 500.4100, L100.0100, L501.9520, L506.1000, L501.9985, L500.4050 #### [facility] [address] [place], [address] Potassium [Moles/Vol] 4.3 mmol/L Normal 3.5-5.1 [facility] Comment on above: Performed By: #### L 500.4100, L100.0100, L501.9520, L506.1000, L501.9985, L500.4050 #### [facility] [address] [place], [address] Sodium [Moles/Vol] 140 mmol/L Normal 136-145 [facility] Comment on above: Performed By: #### L 500.4100, L100.0100, L501.9520, L506.1000, L501.9985, L500.4050 #### [facility] [address] [place], [address] T PROT 6.9 g/dL Normal 6.4-8.2 [facility] Comment on above: Performed By: #### L 500.4100, L100.0100, L501.9520, L506.1000, L501.9985, L500.4050 #### [facility] [address] [place], [address] Urea nitrogen [Mass/Vol] 18 mg/dL Normal 7-18 [facility] Comment on above: Performed By: #### L 500.4100, L100.0100, L501.9520, L506.1000, L501.9985, L500.4050 #### [facility] [address] [place], [address] Hemoglobin A1con 08-30-2024 HbA1c (Bld) [Mass fraction] 5.4 % Normal 3.8-5.6 [facility] Comment on above: Result Comment: Norm al < 5.7 % Prediabetic 5.7 - 6.4 % Diabetic >or= 6.5 % Please note range changes. Performed By: #### L 500.4100, L100.0100, L501.9520, L506.1000, L501.9985, L500.4050 #### [facility] [address] [place], [address] LIPID PANEL (EXTERNAL)on HDC-L 55 mg/dL Abnormal - 41 mg/dL [facility] Interpretation and review of laboratory results Abnormal [facility] LDL Chol, calculated 96 [facility] Lipid Profileon 08-30-2024 Cholesterol [Mass/Vol] 167 mg/dL Normal [address] [place] Comment on above: Result Comment: <200 mg/dL Desirable 200-240 mg/dL Borderline >240 mg/dL High Risk Performed By: #### L 500.4100, L100.0100, L501.9520, L506.1000, L501.9985, L500.4050 #### [facility] [address] [place], [address] Cholesterol in HDL [Mass/Vol] 55 mg/dL Normal [facility] Comment on above: Result Comment: The drugs N-Acetylcysteine and Metamizole may falsely depress this assay. Reference Range HDL <40 mg/dL Low HDL Cholesterol HDL >or= 60 mg/dL High HDL Cholesterol Performed By: #### L 500.4100, L100.0100, L501.9520, L506.1000, L501.9985, L500.4050 #### [facility] [address] [place], [address] Cholesterol in LDL [Mass/Vol] 96 mg/dL Normal 0-130 [facility] Comment on above: Performed By: #### L 500.4100, L100.0100, L501.9520, L506.1000, L501.9985, L500.4050 #### [facility] [address] [place], [address] Cholesterol in VLDL [Mass/Vol] 16 mg/dL Normal 5-40 [facility] Comment on above: Performed By: #### L 500.4100, L100.0100, L501.9520, L506.1000, L501.9985, L500.4050 #### [facility] [address] [place], [address] Triglyceride [Mass/Vol] 82 mg/dL Normal [facility] Comment on above: Result Comment: The drugs N-Acetylcysteine and Metamizole may falsely depress this assay. Serum Triglycerides Reference Interval Normal <150 mg/dL Borderline high 150 - 199 mg/dL High 200 - 499 mg/dL Very High > or = 500 mg/dL Performed By: #### L 500.4100, L100.0100, L501.9520, L506.1000, L501.9985, L500.4050 #### [facility] [address] [place], [address] No Panel Informationon 08-30 [facility] TSH (EXTERNAL)on 08-30-2024 TSH Qn 2.000 m[IU]/L [facility] Thyroid Stim Hormone (TSH)on 08-30-2024 TSH 2.000 uIU/mL Normal 0.358-3.740 [facility] Comment on above: Performed By: #### L 500.4100, L100.0100, L501.9520, L506.1000, L501.9985, L500.4050 #### [facility] [address] [place], [address] VITAMIN D 25 (OH)on 08-30-20 24 Vitamin D 25 [place] 43.6 ng/mL 30 - 100 ng/mL [facility] Vitamin D,25 Hydroxyon 08-30 Vitamin D 25-OH 43.6 ng/mL Normal [facility] Comment on above: Result Comment: Monika min D 25(OH) Status Range Deficiency <20 ng/mL (50nmol/L) Insufficiency 20 - 30 ng/mL (50 - 75 nmol/L) Sufficiency 30 - 100 ng/mL (75 - 250 nmol/L) Toxicity >100 ng/mL (>250 nmol/L) Performed By: #### L 500.4100, L100.0100, L501.9520, L506.1000, L501.9985, L500.4050 #### [facility] [address] [place], [address] [facility] Visit Reporton 08-29-2024 [facility] Visit Report [facility] [address], [address] [place] [address] OFFICE VISIT Date of Service: 08/29/24 MR#: [id number] Acct: [id number] Name: FABIAN BAUM SOFI Rep #: [id number] : 1985 Provider: Dr. 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: No Is patient in pain?: No Allergies No Known Allergies Allergy (Verified 08/26/23 15:02) Medications ???Medication ???Instructions ???Recorded ???Confirmed ???Type multivitamin 1 tab PO DAILY 08/26/23 08/29/24 History medroxyprogesterone 5 mg tablet 5 mg PO QDAY PRN 08/29/24 History metformin 500 mg tablet,extended 500 mg PO BID #120 TABLETS 08/29/24 08/29/24 Rx release 24 hr Is last menstrual period known: Yes Last Menstrual Period: 08/19/24 Post menopausal: No Patient : No : No Control Method: Essure PFSH Medical History Exercise-induced asthma PCOS (polycystic ovarian syndrome) Surgical History Encounter for Essure implantation delivery Family History Mother Breast cancer Thyroid disorder Hypertension Grandmother Cancer bladder Diabetes Thyroid disorder Grandfather Hypertension Social History (Updated 08/29/24 @ 09:37 by Saad Harmon) number of children: 1 current occupational status: employed 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 Date Name GA/Weeks Outcome Route Bth Weight Gen Labor Lgth Anesthesia Del Locatn Provider FOB Unknown 2011 Aaron 39 live - full term [place] [facility] HPI Encounter for routine gynecological examination Details: FABIAN BAUM is a 39 year old who presents for annual exam. Last PAP: 08/14/2022 History of abnormal PAP: Last mammogram: History of abnormal mammogram: [] Colon cancer screening: [] Other preventative health care screenings: Jeremy, does not see annually. Female Reproductive History Last Menstrual Period: 08/19/24 Cycle Length: 21-35 Bleeding Duration: 5 Questions: metorrhagia: No, sexually active: Yes, dyspareunia: No and PCB: No Menopausal Symptoms: No hot flashes, No night sweats, No weight change, No mood changes, No difficulty concentrating, No sleep problems and No change in libido ROS Const Constitutional: Reports as per HPI and weight loss; Denies fatigue, increased appetite, poor appetite, night sweats or weight gain Cardio Card: Denies chest pain Resp Resp: Denies cough or dyspnea GI GI: Reports as per HPI; Denies abdominal pain, bloating, constipation, nausea or vomiting : Reports as per HPI and other; Denies difficulty voiding, dysuria, hematuria, hot flashes, nipple discharge, pelvic pain, prolapse symptoms, urinary frequency, urinary incontinence, urinary urgency, vaginal discharge, vaginal dryn ess, vaginal odor or vaginal pruritus Skin Skin/Breast: Denies changing lesions, breast mass, breast pain, breast skin changes or nipple discharge Psych Psych: Denies anxiety, change in libido, depression or difficulty concentrating Exam Const General: cooperative, healthy appearing, comfortable, no acute distress, well developed and well groomed HENMT Head: normal to inspection and normocephalic Ears: hearing grossly normal bilaterally and external ears normal Nose: external nose normal Face and sinus: normal facial exam Neck Neck: normal visual inspection, full ROM and no lymphadenopathy Thyroid: thyroid normal Chest Chest palpation inspection: normal inspection of the chest Breast inspection: normal inspection of the breasts and normal inspection of the axillae Breast palpation: normal palpation of the breasts, normal palpation of the axillae and no axillary lymphadenopathy Resp Effort Inspection: normal respiratory effort GI Inspection: normal to inspection and non-distended Palpation: soft, no hepatosplenomegal (more content not included)... [facility] ) FABIAN BAUM ([id number]) 1985 F Date Time Provider Department 06/21/24 12:45 PM [facility] During your visit today, we recorded the following information about you: Temperature Pulse Respiration Blood pressure 99 degrees 100/minute 18/minute 138/88 Weight 119.9 kg Saad Deleon APRN.PASTRY ASSISTANT 06/21/2024 1:06 PM Signed This note was created using Vitals (vitals.com)riter. Subjective Fabian Baum is a 38 year old female. 38 year old female with PMH migraines, PCOS and asthma presents for musculoskeletal. 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 Has since progressed into right neck, right back, and right shoulder +tightness Pain exacerbated with movement Denies direct blow or injury Denies weakness Denies numbness or tingling Denies CP or SOB Denies dyspnea Has used Tylenol and Advil Right hand dominant. Endorses today she feels slightly better. The history is provided by the patient. No spanish interpreter was used. Musculoskeletal Problem This is a new problem. The current episode started in the past 7 days. The problem occurs constantly. The problem has been gradually improving. Associated symptoms include neck pain. Pertinent negatives include no abdominal pain, anorexia, arthralgias, change in bowel habit, chest pain, chills, congestion, coughing, diaphoresis, fatigue, fever, headaches, joint swelling, myalgias, nausea, numbness, rash, sore throat, swollen glands, urinary symptoms, vertigo, visual change, vomiting or weakness. Exacerbated by: movement and touching. She has tried acetaminophen, rest and NSAIDs for the symptoms. The treatment provided moderate relief. PAST MEDICAL HISTORY 02/12/2013: Actinic skin damage 02/12/2013: Atypical nevus of upper arm No date: Exercise-induced asthma 09/06/2020: Family history of thyroid disease 02/12/2013: Melanocytic nevus of neck 12/17/2015: Migraine with aura and with status migrainosus, not intractable No date: Morbid obesity due to excess calories (HCC) Comment: childhood 01/24/2023: Other proteinuria Comment: 01/2023: 24 hr urine protein was normal. (check Q1-2 yrs) No date: Polycystic ovaries Comment: has insulin resistance due to this 12/11/2020: PVC's (premature ventricular contractions) Comment: Per event monitor 09/2020 No date: Routine gynecological examination Comment: Dr. Rodriguez 12/11/2020: Sinus tachycardia Comment: Per event monitor 09/202002/12/2013: Viral warts, unspecified 12/15/2013: Well adult exam Comment: Last done: 05/30/2019 PAST SURGICAL HISTORY 02/12/12: DELIVERY ONLY Comment: , low transverse 2017: ESSURE Comment: placed in both falopian tubes No date: HSG aprox. 1997: PAST SURGICAL HISTORY OF Comment: removal of bone spur pressing on nerve medial left foot 09/23/2020: STRESS ECHO Comment: normal 08-09-06: TONSILLECTOMY PRIMARY/SECONDARY Comment: Tonsillectomy ALLERGIES Adipex-P [Phentermine Hcl] MEDICATIONS metFORMIN ER (GLUCOPHAGE XR) 500 mg 24 hr tablet SUMAtriptan (IMITREX) 100 mg tablet One table by mouth with onset of headache. Can repeat in and hour but only 2 tabs in 24 hrs. albuterol HFA (PROVENTIL HFA, VENTOLIN HFA) 90 mcg/actuation inhaler Inhale 1 Puff as instructed every 4 hours as needed. COMPOUNDED PRESCRIPTION Massage therapy for the treatment and prevention of migraine headaches. Once every other week for 10 treatments. Dx: G43.101 cetirizine (ZYRTEC) 10 mg tablet Take 10 mg by mouth once daily. predniSONE (DELTASONE) 10 mg tablet Take 4 tabs daily for 3 days, then 2 tabs daily for 3 days, then 1 tab daily for 3 days with food. cyclobenzaprine (FLEXERIL) 10 mg tablet Take 1 tablet by mouth three times a day as needed for muscle spasm. FAMILY HISTORY Problem Relation Age of Onset Thyroid Mother delisa's, on synthroid Hypertension Mother Breast Cancer Mother other (hypercholesterolemia) Mother other (testicular cancer) Brother Diabetes Maternal Grandmother Thyroid Maternal Grandmother Hypertension Maternal Grandmother other (bladder cancer) Maternal Grandmother Older age, caught early Hypertension Maternal Grandfather Thyroid Paternal Grandmother other (SVT) Paternal Grandmother along with her mother, grandmother and aunt other (myesthenia gravis) Paternal Grandfather Diabetes Maternal Uncle Breast Cancer Other Cousin/Paternal Colon Cancer No Family History Prostate Cancer No Family History Ovarian cancer No Family History Uterine Cancer No Family History Coronary Artery Disease No Family History Social History Tobacco Use Smoking status: Never Smokeless tobacco: Never Substance Use Topics Alcohol use: Yes Alcohol/week: 1.0 standard drink of alcohol Types: 1 Cans of Beer (12oz) per week Comment: Rarely Drug u (more content not included)... Normal [facility] FAB[facility] ([id number]) 1985 F Date Time Provider Department 01/12/24 [facility] During your visit today, we recorded the following information about you: Malissa Garber LPN 01/12/2024 2:00 PM Signed Patient calling asking for referral to [facility] for the [facility]. She was not given a fax number for them. Please advise Jina Garsia PA-C 01/12/2024 2:35 PM Signed Consult form filled out. Yasmin Ibarra LPN 01/12/2024 2:48 PM Signed Form has been faxed to [facility]. Pt notified of same. Yasmin Ibarra LPN Allergies As of Date: 01/12/2024 Noted Allergy Reaction ADIPEX-P (PHENTERMINE HCL) 12/17/2015 14 - Other: See Comments Comments: Palpitations/rapid HR Date Reviewed: 09/02/2023 Reviewed by: Janet Douglas LPN - Fully Assessed Reason for Visit: referral request [Other] Prescriptions as of 01/12/2024 - metFORMIN ER (GLUCOPHAGE XR) 500 mg 24 hr tablet - SUMAtriptan (IMITREX) 100 mg tablet One table by mouth with onset of headache. Can repeat in and hour but only 2 tabs in 24 hrs. - albuterol HFA (PROVENTIL HFA, VENTOLIN HFA) 90 mcg/actuation inhaler Inhale 1 Puff as instructed every 4 hours as needed. - COMPOUNDED PRESCRIPTION Massage therapy for the treatment and prevention of migraine headaches. Once every other week for 10 treatments. Dx: G43.101 Problem List As Of Date 01/12/2024 Noted Resolved Pain in limb [M79.609] 07/22/2007 01/06/2012 Neuralgia, neuritis, and radiculitis, unspecifi*07/22/2007 01/06/2012 Ingrowing nail [L60.0] 07/22/2007 01/06/2012 Morbid obesity due to excess calories (HCC) [E6* Polycystic ovaries [E28.2] Routine general medical examination at [facility]*01/30/2010 01/06/2012 Class: Chronic Routine gynecological examination [Z01.419] 01/30/2010 01/06/2012 Class: Chronic Headache [R51] 01/30/2010 01/06/2012 Supervision of normal first [Z34.00] 01/06/2012 01/20/2012 High-risk [O09.90] 01/20/2012 02/18/2012 Gestational hypertension [O13.9] 01/20/2012 03/28/2012 Atypical nevus of upper arm [D22.60] 02/12/2013 Melanocytic nevus of neck [D22.4] 02/12/2013 Viral warts, unspecified [B07.9] 02/12/2013 Actinic skin damage [L57.8] 02/12/2013 Routine gynecological examination [Z01.419] Exercise-induced asthma [J45.990] Well adult exam [Z00.00] 12/15/2013 Migraine with aura and with status migrainosus,* 6 Screening for diabetes mellitus (DM) [Z13.1] 12/17/2015 Encounter for screening for cardiovascular diso*12/17/2015 Family history of thyroid disease [Z83.49] 09/06/2020 Sinus tachycardia [R00.0] 12/11/2020 PVC's (premature ventricular contractions) [I49*12/11/2020 Other proteinuria [R80.8] 01/24/2023 Encounter Status:Closed by YASMIN IBARRA on 01/12/24 Normal [facility] Mitchell Basophil percentageOrdered B y: Dr. Rodriguez on 03-27-2023 Cholesterol [Mass/Vol] 178 mg/dL <200 [facility] Comment on above: <200 mg/dL Desirable 200-240 mg/dL Borderline >240 mg/dL High Risk Triglyceride [Mass/Vol] 60 mg/dL <199 [facility] Comment on above: The drugs N-Acetylcy steine and Metamizole may falsely depress this assay.Serum Triglycerides Reference Interval Normal <150 mg/dL Borderline high 150 - 199 mg/dL High 200 - 499 mg/dL Very High > or = 500 mg/dL Serum or plasma calcitriol m easurement (mass/volume)Ordered By: Dr. Rodriguez on 03-27-2023 1,25-dihydroxyvitamin D3 [Mass/Vol] 31.1 pg/mL 24.8-81.5 [facility] Comment on above: Performed at: [address] [id number] Director: Karen Lazo MD, Phone: [phone] Serum or plasma cholesterol in HDL measurement (mass/volume)Ordered By: Dr. Rodriguez on 03-27-2023 Cholesterol in HDL [Mass/Vol] 57 mg/dL >40 [facility] Comment on above: The drugs N-Acetylcy steine and Metamizole may falsely depress this assay. Reference Range HDL <40 mg/dL Low HDL Cholesterol HDL >or= 60 mg/dL High HDL Cholesterol Serum or plasma cholesterol in VLDL measurement (mass/volume)Ordered By: Dr. Rodriguez on 03-27-2023 Cholesterol in VLDL [Mass/Vol] 12 mg/dL 5-40 [facility] Serum or plasma low density lipoprotein (LDL) cholesterol measurement (mass/volume)Ordered By: Dr. Rodriguez on 03-27-2023 Cholesterol in LDL [Mass/Vol] 109 mg/dL 0-130 [facility] UA DIP, URINE (POC)on 2022 BILIRUBIN UA (POCT) Negative Negative [facility] CLARITY UA (POCT) Clear [facility] COLOR UA (POCT) Yellow [facility] GLUCOSE UA (POCT) Negative Negative mg/dL [facility] HEMOGLOBIN/BLOOD UA (POCT) Small Abnormal Negative [facility] KETONE UA (POCT) Negative Negative mg/dL [facility] LEUKOCYTES UA (POCT) Negative Negative [facility] NITRITE UA (POCT) Negative Negative [facility] PH UA (POCT) 7.0 4.5 - 8.0 [facility] Protein Ql (U) 30 mg/dL Abnormal Negative mg/dL [facility] SPECIFIC GRAVITY UA (POCT) 1.020 1.005 - 1.030 [facility] UROBILINOGEN UA (POCT) 0.2 E.U./dL Shannon l E.U./dL [facility] HBA1C (OUTSIDE)on 08-24-2022 HbA1c (Bld) [Mass fraction] 5.5 % [facility] TSH (EXTERNAL)on 08-22-2022 TSH 1.10 IU/ml 0.358 - 3.74 IU/ml [facility] CNPNon 09-20-2020 CNPN Telephone ([facility]) FABIAN MOON ([id number]) 1985 F Date Time Provider Department 09/20/20 RUMA CHURCHILL (RN) [facility] During your visit today, we recorded the following information about you: Ruma Churchill RN, RN 09/20/2020 12:44 PM Signed Spoke with patient regarding reminder for stress test on Wednesday and given instructions Allergies As of Date: 09/20/2020 Noted Allergy Reaction ADIPEX-P (PHENTERMINE HCL) 12/17/2015 14 - Other: See Comments Comments: Palpitations/rapid HR Date Reviewed: 09/06/2020 Reviewed by: Casper Tariq - Fully Assessed Reason for Visit: Reminder Call [[id number]] Prescriptions as of 09/20/2020 Sig: MECLIZINE 12.5 MG TABLET Take 1 tablet by mouth every * SUMATRIPTAN 100 MG TABLET One table by mouth with onset* ALBUTEROL SULFATE HFA 90 MCG/* Inhale 1 Puff as instructed e* COMPOUNDED PRESCRIPTION Massage therapy for the treat* Problem List As Of Date 09/20/2020 Noted Resolved Pain in limb [M79.609] 07/22/2007 01/06/2012 Neuralgia, neuritis, and radiculitis, unspecifi*07/22/2007 01/06/2012 Ingrowing nail [L60.0] 07/22/2007 01/06/2012 Morbid obesity due to excess calories (HCC) [E6* More... Polycystic ovaries [E28.2] More... Routine general medical examination at [facility]*01/30/2010 01/06/2012 Class: Chronic More... Routine gynecological examination [Z01.419] 01/30/2010 01/06/2012 Class: Chronic More... Headache [R51] 01/30/2010 01/06/2012 Supervision of normal first [Z34.00] 01/06/2012 01/20/2012 High-risk [O09.90] 01/20/2012 02/18/2012 Gestational hypertension [O13.9] 01/20/2012 03/28/2012 Atypical nevus of upper arm [D22.60] 02/12/2013 Melanocytic nevus of neck [D22.4] 02/12/2013 Viral warts, unspecified [B07.9] 02/12/2013 Actinic skin damage [L57.8] 02/12/2013 Routine gynecological examination [Z01.419] More... Exercise-induced asthma [J45.990] Well adult exam [Z00.00] 12/15/2013 More... Migraine with aura and with status migrainosus,* 6 Screening for diabetes mellitus (DM) [Z13.1] 12/17/2015 Encounter for screening for cardiovascular diso*12/17/2015 Family history of thyroid disease [Z83.49] 09/06/2020 Encounter Status:Closed by RUMA CHURCHILL on 09/20/20 Normal [facility] Vital Signs Date Time Vital Sign Value Performing Clinician Facility 12-09-2024 08:21-0500 Diastolic blood pressure 82 mm[Hg] Casper Tariq MD Work Phone: [facility] 12-09-2024 08:21-0500 Systolic blood pressure 108 mm[Hg] Casper Tariq MD Work Phone: [facility] 12-09-2024 07:55-0500 Body height 163.8 cm Casper Tariq MD Work Phone: [facility] 12-09-2024 07:55-0500 Body mass index (BMI) [Ratio] 42.93 kg/m2 Casper Tariq MD Work Phone: [facility] 12-09-2024 07:55-0500 Body weight 115.21 kg Casper Tariq MD Work Phone: [facility] 12-09-2024 07:55-0500 Heart rate 68 /min Casper Tariq MD Work Phone: [facility] 12-04-2024 07:36-0500 Body mass index (BMI) [Ratio] 44.73 kg/m2 Ian Mcdowell CONDOMINIUM MANAGER.PASTRY ASSISTANT Work Phone: [facility] 12-04-2024 07:36-0500 Body temperature 97.11 [degF] Ian Mcdowell CONDOMINIUM MANAGER.PASTRY ASSISTANT Work Phone: [facility] 12-04-2024 07:36-0500 Body weight 118.2 kg Ian Mcdowell CONDOMINIUM MANAGER.PASTRY ASSISTANT Work Phone: [facility] 12-04-2024 07:36-0500 Diastolic blood pressure 80 mm[Hg] Ian Jeremias CONDOMINIUM MANAGER.PASTRY ASSISTANT Work Phone: [facility] 12-04-2024 07:36-0500 Heart rate 84 /min Ian Jeremias CONDOMINIUM MANAGER.PASTRY ASSISTANT Work Phone: [facility] 12-04-2024 07:36-0500 Respiratory rate 16 /min Ian Mcdowell CONDOMINIUM MANAGER.PASTRY ASSISTANT Work Phone: [facility] 12-04-2024 07:36-0500 SaO2% (BldA) [Mass fraction] 97 % Ian Mcdowell CONDOMINIUM MANAGER.PASTRY ASSISTANT Work Phone: [facility] 12-04-2024 07:36-0500 Systolic blood pressure 124 mm[Hg] Ian Jeremias CONDOMINIUM MANAGER.PASTRY ASSISTANT Work Phone: [facility] 06-21-2024 12:43-0400 Body mass index (BMI) [Ratio] 45.37 kg/m2 Saad Deleon CONDOMINIUM MANAGER.PASTRY ASSISTANT Work Phone: [facility] 06-21-2024 12:43-0400 Body temperature 99 [degF] Saad Deleon CONDOMINIUM MANAGER.PASTRY ASSISTANT Work Phone: [facility] 06-21-2024 12:43-0400 Body weight 119.9 kg Saad Deleon CONDOMINIUM MANAGER.PASTRY ASSISTANT Work Phone: [facility] 06-21-2024 12:43-0400 Diastolic blood pressure 88 mm[Hg] Saad Deleon CONDOMINIUM MANAGER.PASTRY ASSISTANT Work Phone: [facility] 06-21-2024 12:43-0400 Heart rate 100 /min Saad Deleon CONDOMINIUM MANAGER.PASTRY ASSISTANT Work Phone: [facility] 06-21-2024 12:43-0400 Respiratory rate 18 /min Saad Deleon CONDOMINIUM MANAGER.PASTRY ASSISTANT Work Phone: [facility] 06-21-2024 12:43-0400 SaO2% (BldA) [Mass fraction] 98 % Saad Deleon CONDOMINIUM MANAGER.PASTRY ASSISTANT Work Phone: [facility] 06-21-2024 12:43-0400 Systolic blood pressure 138 mm[Hg] Saad Deleon CONDOMINIUM MANAGER.PASTRY ASSISTANT Work Phone: [facility] 03-13-2024 14:37-0400 Body height 160.02 cm [facility] 03-13-2024 14:37-0400 Body weight 126.18 kg [facility] 06-25-2023 08:54-0400 Body height 160.[address] Casper Tariq Work Phone: 3(410)247-869060 [place] [address] 06-25-2023 08:54-0400 Body mass index (BMI) [Ratio] 47.9 kg/m2 Dr. Casper Tariq Work Phone: 4(888)507-026360 [place] [address] 06-25-2023 08:54-0400 Body temperature 97.2 [degF] Dr. Casper Tariq Work Phone: 7(856)347-287960 [place] [address] 06-25-2023 08:54-0400 Body weight 122.[address] Casper Tariq Work Phone: 4(202)857-612060 [place] [address] 06-25-2023 08:54-0400 Diastolic blood pressure 85 mm[Hg] Dr. Casper Tariq Work Phone: 2(008)191-547460 [place] [address] 06-25-2023 08:54-0400 Heart rate 67 /min Dr. Casper Tariq Work Phone: 4(497)240-309560 [place] [address] 06-25-2023 08:54-0400 Respiratory rate 20 /min Dr. Casper Tariq Work Phone: 5(729)286-852760 [place] [address] 06-25-2023 08:54-0400 SaO2% (BldA) [Mass fraction] 98 % Dr. Casper Tariq Work Phone: 7(751)138-949160 [place] [address] 06-25-2023 08:54-0400 Systolic blood pressure 121 mm[Hg] Dr. Casper Tariq Work Phone: 3(786)158-839860 [place] [address] 06-10-2023 14:29-0400 Body mass index (BMI) [Ratio] 49.2 kg/m2 Dr. Casper Tariq Work Phone: 0(267)740-993060 [place] [address] 06-10-2023 14:29-0400 Body weight 126.[address] Casper Tariq Work Phone: 9(428)386-728060 [place] [address] 06-10-2023 14:29-0400 Diastolic blood pressure 80 mm[Hg] Dr. Casper Tariq Work Phone: 9(151)176-093560 [place] [address] 06-10-2023 14:29-0400 Systolic blood pressure 123 mm[Hg] Dr. Casper Tariq Work Phone: [facility] 03-25-2023 09:16-0400 Body height 160.[address] Casper Tariq Work Phone: [facility] 03-25-2023 09:13-0400 Body mass index (BMI) [Ratio] 48.7 kg/m2 Dr. Casper Tariq Work Phone: [facility] 03-25-2023 09:13-0400 Body weight 124.[address] Casper Tariq Work Phone: [facility] 03-25-2023 09:13-0400 Diastolic blood pressure 80 mm[Hg] Dr. Casper Tariq Work Phone: [facility] 03-25-2023 09:13-0400 Systolic blood pressure 137 mm[Hg] Dr. Casper Tariq Work Phone: [facility] 12-21-2022 08:34-0500 Body temperature 97 [degF] Chelsie Bogner PA-C Work Phone: [facility] 12-21-2022 08:34-0500 Body weight 122.29 kg Chelsie Bogner PA-C Work Phone: [facility] 12-21-2022 08:34-0500 Diastolic blood pressure 78 mm[Hg] Chelsie Bogner PA-C Work Phone: [facility] 12-21-2022 08:34-0500 Heart rate 79 /min Chelsie Bogner PA-C Work Phone: [facility] 12-21-2022 08:34-0500 Respiratory rate 18 /min Chelsie Bogner PA-C Work Phone: [facility] 12-21-2022 08:34-0500 SaO2% (BldA) [Mass fraction] 99 % Chelsie Bogner PA-C Work Phone: [facility] 12-21-2022 08:34-0500 Systolic blood pressure 110 mm[Hg] Chelsie Bogner PA-C Work Phone: [facility] 08-14-2022 08:47-0400 Body height 160.[address] Casper Tariq Work Phone: [facility] Work Phone: 08-14-2022 08:46-0400 Body mass index (BMI) [Ratio] 45.3 kg/m2 Dr. Casper Tariq Work Phone: [facility] Work Phone: 08-14-2022 08:46-0400 Body weight 116.[address] Casper Tariq Work Phone: [facility] Work Phone: 08-14-2022 08:46-0400 Diastolic blood pressure 80 mm[Hg] Dr. Casper Tariq Work Phone: [facility] Work Phone: 08-14-2022 08:46-0400 Systolic blood pressure 119 mm[Hg] Dr. Casper Tariq Work Phone: [facility] Work Phone: 08-01-2022 08:15-0400 Body temperature 97.5 [degF] Aneudy Valera MD Work Phone: [facility] 08-01-2022 08:15-0400 Body weight 117.48 kg Aneudy Valera MD Work Phone: [facility] 08-01-2022 08:15-0400 Diastolic blood pressure 84 mm[Hg] Aneudy Valera MD Work Phone: [facility] 08-01-2022 08:15-0400 Heart rate 90 /min Aneudy Valera MD Work Phone: [facility] 08-01-2022 08:15-0400 Respiratory rate 18 /min Aneudy Valera MD Work Phone: [facility] 08-01-2022 08:15-0400 SaO2% (BldA) [Mass fraction] 98 % Aneudy Valera MD Work Phone: [facility] 08-01-2022 08:15-0400 Systolic blood pressure 130 mm[Hg] Aneudy Valera MD Work Phone: [facility] Encounters Encounter Date Encounter Type Care Provider Facility Start: 02-12-2025 ambulatory Casper Tariq Facility :[facility] Start: 01-10-2025 End: 01-19-2025 ambulatory Casper Tariq Facility:[facility] Start: 12-20-2024 End: 12-22-2024 ambulatory Caspercirilo Tariq Facility:[facility] Start: 12-09-2024 End: 12-09-2024 ambulatory CASPER TARIQ Facility:[facility] Start: 12-09-2024 End: 12-09-2024 Patient encounter procedure Casper Tariq MD Work Phone: [facility] Comment on above: Well adult exam (Elin calvin Dx); Migraine with aura and with status migrainosus, not intractable; Exercise-induced asthma; Morbid obesity due to excess calories (HCC); Polycystic ovaries; Screening for depression; Encounter for screening examination for other mental health and behavioral disorders; Family history of thyroid disease; Encounter for screening for cardiovascular disorders; Screening for diabetes mellitus (DM) Start: 12-09-2024 End: 12-09-2024 Patient encounter status Casper Tariq MD Work Phone: [facility] Work Phone: Start: 12-04-2024 End: 12-04-2024 ambulatory CASPER TARIQ Facility:[facility] Start: 12-04-2024 End: 12-04-2024 Patient encounter procedure Ian Mcdowell APRN.CNP Work Phone: [facility] Comment on above: Sinobronchitis (Prim emili Dx) Start: 11-08-2024 End: 11-21-2024 ambulatory Casper Tariq Facility:[facility] Start: 10-09-2024 End: 10-21-2024 ambulatory Casper Tariq Facility:[facility] Start: 08-30-2024 End: 08-30-2024 Chart abstracting Casper Tariq MD Work Phone: [facility] Comment on above: Outside [id number] Ordered Start: 08-29-2024 Encounter for gynecological examination (general) (routine) without abnormal findings Khloe Rodriguez [facility] Start: 08-29-2024 End: 09-21-2024 ambulatory Casper Jeremy Facility:[facility] Start: 08-07-2024 End: 08-[facility] Start: 07-10-2024 End: 07-22-2024 [facility] Start: 06-21-2024 End: 06-21-2024 ambulatory CASPER TARIQ Facility:[facility] Start: 06-21-2024 End: 06-21-2024 Patient encounter procedure Saad Deleon APRN.CNP Work Phone: [facility] Comment on above: Strain of neck muscl e, initial encounter (Primary Dx); Upper back strain, initial encounter Start: 06-12-2024 End: 06-21-2024 ambulatory Casper Jeremy Facility:[facility] Start: 05-03-2024 End: 05-21-2024 [facility] Start: 04-19-2024 End: 04-21-2024 ambulatory [facility] Facility:[facility] Start: 03-13-2024 End: 03-21-2024 ambulatory Jina Garsia [facility] Work Phone: Start: 03-13-2024 End: 03-21-2024 Discharged Recurring [facility] Work Phone: Start: 01-12-2024 Telephone encounter Casper Tariq MD Work Phone: [facility] Comment on above: referral request Start: 07-06-2023 End: 07-06-[address] Casper Tariq Work Phone: [facility] Work Phone: Start: 07-06-2023 End: 07-06-[address] Casper Tariq Work Phone: [facility] Work Phone: Start: 06-25-2023 End: 06-25-[address] [facility] Work Phone: Start: 06-10-2023 End: 06-10-[address] Casper Tariq Work Phone: [facility] Work Phone: Start: 04-02-2023 Chart abstracting Casper samson MD Work Phone: [facility] Comment on above: Results Start: 03-27-2023 End: 03-27-[address] Casper Tariq Work Phone: [facility] Work Phone: Start: 03-27-2023 End: 03-27-[address] Casper Tariq Work Phone: [facility] Start: 03-25-2023 End: 03-25-[address] Casper Tariq Work Phone: [facility] Start: 02-01-2023 Telephone encounter Casper Tariq MD Work Phone: [facility] Comment on above: Results Start: 12-28-2022 ambulatory Casper francisco MD Work Phone: [facility] Start: 12-28-2022 Follow-up encounter Casper Tariq MD Work Phone: [facility] Comment on above: Express Care Visit F ollow Up Start: 12-22-2022 Telephone encounter Maura FLOYD Work Phone: [facility] Comment on above: Results Start: 12-21-2022 End: 12-21-2022 Office outpatient visit 25 minutes Chelsie Nugent PA-C Work Phone: [facility] Comment on above: Urinary frequency (P rimary Dx) Start: 08-25-2022 Chart abstracting Casper samson MD Work Phone: [facility] Comment on above: Outside Lab Results Start: 08-24-2022 Chart abstracting Casper samson MD Work Phone: [facility] Comment on above: Outside Labs Results Start: 08-14-2022 End: 08-14-[address] Casper Tariq Work Phone: [facility] Work Phone: Start: 08-14-2022 End: 08-14-[address] Casper Tariq Work Phone: [facility], Specimen Start: 08-14-2022 End: 08-14-[address] Casper Tariq Work Phone: [facility] Start: 08-01-2022 End: 08-01-2022 Patient encounter procedure Aneudy Valera MD Work Phone: [facility] Comment on above: Allergic dermatitis due to poison mable (Primary Dx) Start: 05-30-2019 Patient encounter status Aneudy Valera MD Work Phone: [facility] Work Phone: Start: 08-19-2016 Patient encounter status Aneudy Valera MD Work Phone: [facility] Work Phone: Start: 01-30-2010 End: 01-06-2012 Patient encounter status Saad Deleon APRN.PASTRY ASSISTANT Work Phone: [facility] Procedures Date Procedure Procedure Detail Performing Clinician Start: 12-09-2024 Adult depression scr eening assessment Casper Tariq MD Work Phone: Start: 08-30-2024 Hemoglobin A1c/Hemoglobin.total in Blood [facility] Start: 08-30-2024 Lipid panel [facility] Provid er Start: 08-30-2024 Thyrotropin [Units/v olume] in Serum or Plasma [facility] Start: 08-30-2024 VITAMIN D 25 ([place]) [facility] P anisa Start: 12-21-2022 Urnls dip stick/tabl et rgnt auto w/o microscopy Chaya Orlando PA-C Work Phone: Start: 08-24-2022 Hemoglobin A1c/Hemoglobin.total in Blood [facility] Start: 08-22-2022 Thyrotropin [Units/v olume] in Serum or Plasma [facility] Start: 11-28-2018 Adult depression scr eening assessment Aneudy Valera MD Work Phone: Plan of Treatment Date Care Activity Detail Author Start: 05-30-2029 Urine microalbumin profile [facility] Start: 08-14-2027 HPV TESTING HPV TESTING [facility] Start: 08-14-2027 PAP TESTING PAP TESTING [facility] Start: 08-14-2027 Screening for malign ant neoplasm of cervix [facility] Start: 12-10-2025 End: 12-10-2025 Patient encounter procedure 12/10/2025 8:40 AM EST Office Visit [facility] [address] [place] [address] Casper Tariq MD [address] [place] [id number] [facility] Comment on above: Physical Start: 12-09-2025 Annual PCP Team Cane Burner maki Disease Visit Annual PCP Team Chronic Disease Visit [facility] Start: 12-09-2025 Anxiety Screening Anxiety Screening [facility] Start: 12-09-2025 Depression Screening Depression Scre ening [facility] Start: 11-22-2025 End: 02-21-2026 Hemoglobin A1c in Blood HEMOGLOBIN A1C Lab Routine Well adult exam Screening for diabetes mellitus (DM) Expected: 11/22/2025, Expires: 02/21/2026 [facility] Work Phone: Comment on above: Expected: 11/22/2025 , Expires: 02/21/2026 Start: 11-22-2025 End: 02-21-2026 LIPID PANEL, NONFASTING LIPID PANEL, NONFASTING Lab Routine Well adult exam Encounter for screening for cardiovascular disorders Expected: 11/22/2025, Expires: 02/21/2026 [facility] Comment on above: Expected: 11/22/2025 , Expires: 02/21/2026 Start: 11-22-2025 End: 02-21-2026 Thyrotropin [Units/volume] in Serum or Plasma THYROID STIMULATING HORMONE Lab Routine Well adult exam Family history of thyroid disease Expected: 11/22/2025, Expires: 02/21/2026 [facility] Comment on above: Expected: 11/22/2025 , Expires: 02/21/2026 Start: 05-21-2025 Influenza vaccination Influenza Vacc ine (#1) [facility] Comment on above: Postponed from 07/23 (Declined at this time) Start: 04-09-2025 End: 04-09-2025 Patient encounter procedure 04/09/2025 2:00 PM EDT Office Visit [facility] [address] [place] [address] Casper Tariq MD [address] [place], [place] [id number] general check of overall health [facility] Comment on above: general check of ove rall health Start: 07-23-2024 Covid-19 Vaccine ( season) Covid-19 Vaccine ( season) [facility] Start: 07-23-2024 Influenza vaccination Influenza Vacc ine (#1) [facility] Start: 11-22-2023 Depression Assessment Depression Ass essment [facility] Start: 07-23-2023 Covid-19 Vaccine ( season) Covid-19 Vaccine ( season) [facility] Start: 07-23-2023 Influenza vaccination [facility] Start: 06-10-2023 Patient referral [facility] Work Phone: Start: 01-25-2023 End: 03-27-2023 Urinalysis complete panel - Urine URINALYSIS, WITH MICROSCOPIC Lab Routine Microscopic hematuria Proteinuria, unspecified type Expected: 01/25/2023, Expires: 03/27/2023 [facility] Work Phone: Comment on above: Expected: 01/25/2023 , Expires: 03/27/2023 Start: 11-22-2022 DEPRESSION ASSESSMENT DEPRESSION ASS [facility] Start: 08-14-2022 Liquid based cervica l cytology screening [facility] Work Phone: Start: 07-23-2022 Influenza vaccination INFLUENZA (#1) [facility] Start: 01-15-2022 HPV TESTING HPV TESTING [facility] Start: 01-15-2022 PAP TESTING PAP TESTING [facility] Start: 11-22-2021 DEPRESSION ASSESSMENT DEPRESSION ASS [facility] Start: 09-06-2021 ANNUAL PCP TEAM [employer] MAKI DISEASE VISIT ANNUAL PCP TEAM CHRONIC DISEASE VISIT [facility] Start: 11-28-2019 Adult depression screening assessment DEPRESSION SCREENING [facility] Start: 2005 Hepatitis B Vaccine (1 of 3 - 19+ 3-dose series) Hepatitis B Vaccine (1 of 3 - 19+ 3-dose series) [facility] Start: 2004 Anxiety Screening Anxiety Screening [facility] Start: 2004 Depression Screening Depression Scre ening [facility] Start: 2004 HIV SCREENING HIV SCREENING [facility] Start: 2004 HIV screening HIV Screening [facility] Start: 2004 SPIROMETRY SPIROMETRY [facility] Start: 1992 PNEUMOCOCCAL (1 - PCV) PNEUMOCOCCAL (1 - PCV) [facility] Start: 01-03-1987 COVID-19 VACCINE (#1) COVID-19 VACCI NE (#1) [facility] Start: 1986 HEPATITIS B (1 of 3 - 3-dose series) HEPATITIS B (1 of 3 - 3-dose series) [facility] Start: 1986 Hepatitis B Vaccine (1 of 3 - 3-dose series) Hepatitis B Vaccine (1 of 3 - 3-dose series) [facility] Bacteria identified in Urine by Culture URINE CULTURE Microbiology Routine Urinary frequency Ordered: 12/21/2022 [facility] Work Phone: Comment on above: Ordered: 12/21/2022 Path report.final Dx Spec [facility] Work Phone: Patient referral [facility] Work Phone: Urinalysis complete panel - Urine URINALYSIS, WITH MICROSCOPIC Lab Routine Urinary frequency Ordered: 12/21/2022 [facility] Work Phone: Comment on above: Ordered: 12/21/2022 Immunizations Immunization Date Immunization Notes Care Provider Fa cility 05-30-2019 tetanus toxoid, redu leanna diphtheria toxoid, and acellular pertussis vaccine, adsorbed Aneudy Valera MD Work Phone: [facility] 11-28-2018 influenza, injectabl e, quadrivalent, contains preservative Aneudy Valera MD Work Phone: [facility] 11-28-2018 influenza virus vaccine, unspecified formulation Casper Tariq MD Work Phone: [facility] 10-26-2017 influenza, injectabl e, quadrivalent, contains preservative Aneudy Valera MD Work Phone: [facility] 12-17-2015 influenza, injectabl e, quadrivalent, contains preservative Aneudy Valera MD Work Phone: [facility] Work Phone: 12-15-2013 influenza virus vaccine, unspecified formulation Aneudy Valera MD Work Phone: [facility] Work Phone: 10-19-2012 influenza virus vaccine, unspecified formulation Aneudy Valera MD Work Phone: [facility] Work Phone: 11-25-2011 RHO(D) immune globul in- IV or IM Aneudy Valera MD Work Phone: [facility] Work Phone: 09-03-2011 tuberculin skin test ; purified protein derivative solution, intradermal Casper Tariq MD Work Phone: [facility] 08-31-2011 influenza virus vaccine, unspecified formulation Aneudy Valera MD Work Phone: [facility] Work Phone: 10-02-2010 influenza virus vaccine, unspecified formulation Aneudy Valera MD Work Phone: [facility] 02-11-2010 tetanus and diphther ia toxoids, adsorbed, preservative free, for adult use (2 Lf of tetanus toxoid and 2 Lf of diphtheria toxoid) Aneudy Valera MD Work Phone: [facility] Payers Date Payer Category Payer Self-pay [id number] 2022 Unknown [id number] 2019 Unknown [id number] Unknown [facility] [id number] Unknown [facility] [employer] [id number] Unknown [id number] 2.16.8 [id number] Unknown [id number] 2.16.8 [id number] Unknown [id number] 2.16.8 [id number] Unknown [id number] 2.16.8 [id number] Unknown [id number] 2.16.8 [id number] Unknown [id number] 2.16.8 [id number] Unknown [id number] 2.16.8 [id number] Unknown [id number] 2.16.8 [id number] Unknown [id number] 2.16.8 [id number] Unknown [id number] 2.16.8 [id number] Unknown [id number] 2.16.8 [id number] Unknown [id number] 2.16.8 [id number] Unknown [id number] 2.16.8 [id number] Unknown [id number] 2.16.8 [id number] Social History Date Type Detail Facility Start: 07-31-2011 Tobacco smoking stat us NHIS Never smoked tobacco [facility] Start: 07-31-2011 Tobacco use and exposure Smokeless tobacco non-user [facility] Start: 08-01-2022 End: 12-09-2024 Alcohol intake Current drinker of alcohol (finding) [facility] Start: 08-01-2022 End: 12-04-2024 Alcohol intake [facility] Start: 03-22-2009 History SDOH Alcohol Comment Rarely [facility] Start: 1985 Sex Assigned At Not on file [facility] Start: 08-14-2022 End: 08-26-2023 Tobacco smoking status NHIS Unknown if ever smoked [facility] Start: 1985 Sex Assigned At Female [facility] Start: 09-02-2023 End: 12-04-2024 Tobacco use panel [facility] Adult Depression Screening Assessment 0 [facility] Has the [employer], or [employer] threatened to shut off services in your home in past 12Mo No [facility] Are you now , , , , never or living with a partner? [facility] How often to you hav e a drink containing alcohol? Monthly or less [facility] How many standard drinks containing alcohol do you have on a typical day? 1 or 2 [facility] How often do you hav e 6 or more drinks on 1 occasion? Never [facility] How hard is it for y ou to pay for the very basics like food, housing, medical care, and heating Not very hard [facility] Do you feel stress - tense, restless, nervous, or anxious, or unable to sleep at night because your mind is troubled all the time - these days [OSQ] Not at all [facility] (I/We) worried wheth er (my/our) food would run out before (I/we) got money to buy more. Never true [facility] Medical Equipment Procedure Code Equipment Code Equipment Origin al Text Equipment Identifier Dates Sys Ctrl Essure 2 Dev Hs - [id number] Start: 04-08-2017 Clinical Notes 01-20-2012 to 12-09-2024 Casper Tariq MD - 12/09/2024 7:48 AM Ian Dasilva APRN.PASTRY ASSISTANT - 12/04/2024 8:06 AM Yasmin Dowd LPN - 08/30/2024 12:23 PM Yasmin Solomon LPN - 08/30/2024 8:03 AM EDT Note Date & Type Note Facility 12-09-2024 Note HNO ID: [id number] Author: CASPER TARIQ MD Service: ? Author Type: Physician Type: Progress Notes Filed: 12/09/2024 08:34 Note Text: Chief Complaint Patient presents with: Physical HPI Fabian Baum is a 39 year old female who presents here today for Physical. Patient with Hx of exercise induced asthma, Migraines, morbif obesity, PVC's, PCOS. Has FHx of thyroid disease. Has been out of sumatriptan and getting headache's a few times a month. Not as often as they used to be. Patient has otherwise been doing well. Has been working with [employer] for weight loss. Past medical history, appointments, medications, allergies reviewed. Previous Medical History PAST MEDICAL HISTORY Diagnosis Date Actinic skin damage 02/12/2013 Atypical nevus of upper arm 02/12/2013 Exercise-induced asthma Family history of thyroid disease 09/06/2020 Melanocytic nevus of neck 02/12/2013 Migraine with aura and with status migrainosus, not intractable 12/17/2015 Morbid obesity due to excess calories (HCC) childhood Other proteinuria 01/24/202301/2023: 24 hr urine protein was normal. (check Q1-2 yrs) Polycystic ovaries has insulin resistance due to this PVC's (premature ventricular contractions) 12/11/2020 Per event monitor 09/[address] Rodriguez Sinus tachycardia 12/11/2020 Per event monitor 09/2020 Viral warts, unspecified 02/12/2013 Well adult exam 12/15/2013 Last done: 05/30/2019 Previous Surgical History PAST SURGICAL HISTORY Procedure Laterality Date DELIVERY ONLY 02/12/12 , low transverse ESSURE 2017 placed in both falopian tubes [facility] PAST SURGICAL HISTORY OF aprox. 1996 removal of bone spur pressing on nerve medial left foot STRESS ECHO 09/23/2020 normal TONSILLECTOMY PRIMARY/SECONDARY Tonsillectomy Family History FAMILY HISTORY Problem Relation Age of Onset Thyroid Mother delisa's, on synthroid Hypertension Mother Breast Cancer Mother other (hypercholesterolemia) Mother other (testicular cancer) Brother Diabetes Maternal Grandmother Thyroid Maternal Grandmother Hypertension Maternal Grandmother other (bladder cancer) Maternal Grandmother Older age, caught early Hypertension Maternal Grandfather Thyroid Paternal Grandmother other (SVT) Paternal Grandmother along with her mother, grandmother and aunt other (myesthenia gravis) Paternal Grandfather Diabetes Maternal Uncle Breast Cancer Other Cousin/Paternal Colon Cancer No Family History Prostate Cancer No Family History Ovarian cancer No Family History Uterine Cancer No Family History Coronary Artery Disease No Family History Patient Allergies ALLERGIES Allergen Reactions Adipex-P [Phentermi* Other: See Comments Palpitations/rapid HR Current Medications Current Outpatient Medications on File Prior to Visit Medication Sig doxycycline (VIBRA-TABS) 100 mg tablet Take 1 tablet by mouth two times a day for 7 days. predniSONE (DELTASONE) 20 mg tablet Take 2 tablets by mouth once daily for 5 days. cetirizine (ZYRTEC) 10 mg tablet Take 10 mg by mouth once daily. predniSONE (DELTASONE) 10 mg tablet Take 4 tabs daily for 3 days, then 2 tabs daily for 3 days, then 1 tab daily for 3 days with food. (Patient not taking: Reported on 12/04/2024) cyclobenzaprine (FLEXERIL) 10 mg tablet Take 1 tablet by mouth three times a day as needed for muscle spasm. metFORMIN ER (GLUCOPHAGE XR) 500 mg 24 hr tablet SUMAtriptan (IMITREX) 100 mg tablet One table by mouth with onset of headache. Can repeat in and hour but only 2 tabs in 24 hrs. (Patient not taking: Reported on 12/04/2024) albuterol HFA (PROVENTIL HFA, VENTOLIN HFA) 90 mcg/actuation inhaler Inhale 1 Puff as instructed every 4 hours as needed. COMPOUNDED PRESCRIPTION Massage therapy for the treatment and prevention of migraine headaches. Once every other week for 10 treatments. Dx: G43.101 No current facility-administered medications on file prior to visit. Social History Social History Tobacco Use Smoking status: Never Smokeless tobacco: Never Substance Use Topics Alcohol use: Yes Alcohol/week: 1.0 standard drink of alcohol Types: 1 Cans of Beer (12oz) per week Comment: Rarely Drug use: No Review of Symptoms REVIEW OF SYSTEMS GENERAL: No weight loss, malaise or fevers HEENT: see HPI, No changes in hearing or vision, no nose bleeds or other nasal problems NECK: Negative for lumps, goiter, pain and significant neck swelling RESPIRATORY: Negative for cough, hemoptysis, wheezing, COPD, dyspnea or shortness of breath CARDIOVASCULAR: Negative for chest pain, leg swelling, hypertension, CHF or palpitations GI: No nausea, vomiting, or diarrhea. May have heartburn once a week. : No history of dysuria, frequency or blood MUSCULOSKELETAL: Negative for joint pain or swelling, back pain or muscle pain SKIN: Negative for lesions, rash, and itching (more content not included)... [facility] 12-09-2024 History of Present illness Narrative Chief Complaint Patient presents with: Physical HPI Fabian Baum is a 39 year old female who presents here today for Physical. Patient with Hx of exercise induced asthma, Migraines, morbif obesity, PVC's, PCOS. Has FHx of thyroid disease. Has been out of sumatriptan and getting headache's a few times a month. Not as often as they used to be. Patient has otherwise been doing well. Has been working with [employer] for weight loss. Past medical history, appointments, medications, allergies reviewed. Previous Medical History PAST MEDICAL HISTORY Diagnosis Date Actinic skin damage 02/12/2013 Atypical nevus of upper arm 02/12/2013 Exercise-induced asthma Family history of thyroid disease 09/06/2020 Melanocytic nevus of neck 02/12/2013 Migraine with aura and with status migrainosus, not intractable 12/17/2015 Morbid obesity due to excess calories (HCC) childhood Other proteinuria 01/24/202301/2023: 24 hr urine protein was normal. (check Q1-2 yrs) Polycystic ovaries has insulin resistance due to this PVC's (premature ventricular contractions) 12/11/2020 Per event monitor 09/[address] Rodriguez Sinus tachycardia 12/11/2020 Per event monitor 09/2020 Viral warts, unspecified 02/12/2013 Well adult exam 12/15/2013 Last done: 05/30/2019 Previous Surgical History PAST SURGICAL HISTORY Procedure Laterality Date DELIVERY ONLY 02/12/12 , low transverse ESSURE 2017 placed in both falopian tubes [facility] PAST SURGICAL HISTORY OF aprox. 1996 removal of bone spur pressing on nerve medial left foot STRESS ECHO 09/23/2020 normal TONSILLECTOMY PRIMARY/SECONDARY <AGE 13 9-18-06 Tonsillectomy Family History FAMILY HISTORY Problem Relation Age of Onset Thyroid Mother delisa's, on synthroid Hypertension Mother Breast Cancer Mother other (hypercholesterolemia) Mother other (testicular cancer) Brother Diabetes Maternal Grandmother Thyroid Maternal Grandmother Hypertension Maternal Grandmother other (bladder cancer) Maternal Grandmother Older age, caught early Hypertension Maternal Grandfather Thyroid Paternal Grandmother other (SVT) Paternal Grandmother along with her mother, grandmother and aunt other (myesthenia gravis) Paternal Grandfather Diabetes Maternal Uncle Breast Cancer Other Cousin/Paternal Colon Cancer No Family History Prostate Cancer No Family History Ovarian cancer No Family History Uterine Cancer No Family History Coronary Artery Disease No Family History Patient Allergies ALLERGIES Allergen Reactions Adipex-P [Phentermi* Other: See Comments Palpitations/rapid HR Current Medications Current Outpatient Medications on File Prior to Visit Medication Sig doxycycline (VIBRA-TABS) 100 mg tablet Take 1 tablet by mouth two times a day for 7 days. predniSONE (DELTASONE) 20 mg tablet Take 2 tablets by mouth once daily for 5 days. cetirizine (ZYRTEC) 10 mg tablet Take 10 mg by mouth once daily. predniSONE (DELTASONE) 10 mg tablet Take 4 tabs daily for 3 days, then 2 tabs daily for 3 days, then 1 tab daily for 3 days with food. (Patient not taking: Reported on 12/04/2024) cyclobenzaprine (FLEXERIL) 10 mg tablet Take 1 tablet by mouth three times a day as needed for muscle spasm. metFORMIN ER (GLUCOPHAGE XR) 500 mg 24 hr tablet SUMAtriptan (IMITREX) 100 mg tablet One table by mouth with onset of headache. Can repeat in and hour but only 2 tabs in 24 hrs. (Patient not taking: Reported on 12/04/2024) albuterol HFA (PROVENTIL HFA, VENTOLIN HFA) 90 mcg/actuation inhaler Inhale 1 Puff as instructed every 4 hours as needed. COMPOUNDED PRESCRIPTION Massage therapy for the treatment and prevention of migraine headaches. Once every other week for 10 treatments. Dx: G43.101 No current facility-administered medications on file prior to visit. Social History Social History Tobacco Use Smoking status: Never Smokeless tobacco: Never Substance Use Topics Alcohol use: Yes Alcohol/week: 1.0 standard drink of alcohol Types: 1 Cans of Beer (12oz) per week Comment: Rarely Drug use: No Review of Symptoms REVIEW OF SYSTEMS GENERAL: No weight loss, malaise or fevers HEENT: see HPI, No changes in hearing or vision, no nose bleeds or other nasal problems NECK: Negative for lumps, goiter, pain and significant neck swelling RESPIRATORY: Negative for cough, hemoptysis, wheezing, COPD, dyspnea or shortness of breath CARDIOVASCULAR: Negative for chest pain, leg swelling, hypertension, CHF or palpitations GI: No nausea, vomiting, or diarrhea. May have heartburn once a week. : No history of dysuria, frequency or blood MUSCULOSKELETAL: Negative for joint pain or swelling, back pain or muscle pain SKIN: Negative for lesions, rash, and itching PSYCH: sees a counselor for mild anxiety. HEMATOLOGY/LYMPHOLOGY: Negative for prolonged bleeding, bruising easily or swollen nodes ENDOCRINE: Negative for cold or heat intolerance, polyuria, polydipsia and goiter NEURO: No history of syncope, paralysis, seizures or tremors EXAM: BP 122/86 Pulse 68 Ht 163.8 cm (5' 4.5) Wt 115.2 kg (254 lb) LMP 11/21/2024 BMI 42.93 kg/m BP 108/82 Pulse 68 Ht 163.8 cm (5' 4.5) Wt 115.2 kg (254 lb) LMP 11/21/2024 BMI 42.93 kg/m Last 8 Encounter Wt Readings: Date: Wt: 12/09/2024 115.2 kg (254 lb) 12/04/2024 118.2 kg (260 lb 9.3 oz) 06/21/2024 119.9 kg (264 lb 5.3 oz) 09/02/2023 126.7 kg (279 lb 6.4 oz) 12/21/2022 122.3 kg (269 lb 9.6 oz) 08/01/2022 117.5 kg (259 lb) 05/04/2021 122 kg (269 lb) 09/06/2020 120.2 kg (265 lb) General Appearance: Well appearing, alert, in no acute distress, well-hydrated, well nourished. and Morbidly obese. Skin: Skin color, texture, turgor normal, no suspicious rashes or lesions. Head: Normocephalic, no masses, lesions, tenderness or abnormalities. Eyes: Anicteric sclera. Pupils are equally round and reactive to light. Extraocular movements are intact. . Ears: External ears, TM's normal, canals clear. Nose/Sinuses: Nares normal, septum midline, mucosa normal, no drainage or sinus tenderness. Oropharynx: Lips, mucosa, and tongue normal, teeth and gums normal, oropharynx normal. Neck: Supple, no adenopathy; thyroid symmetric, normal size, no bruits. Lungs: Lungs clear to auscultation. No wheezing, rhonchi, rales.. Heart: RRR without murmur, gallop, or rubs. No ectopy. Abdomen: Normal abdominal exam, Abdomen soft, non-tender. Bowel sounds normal. No masses, organomegaly. Extremities: No deformities, edema, skin discoloration, Good capillary refill. . Musculoskeletal: Muscular strength intact, No joint swelling, deformity, or tenderness. Peripheral Pulses: Normal. Neurologic: Gait normal. Reflexes normal and symmetric. Sensation to light touch and crainal nerves 2-12 intact.. Health Maintenance List Spirometry Never done Depression Screening Never done Anxiety Screening Never done HIV Screening Never done Hepatitis B Vaccine(1 of 3 - 19+ 3-dose series) Never done Annual PCP Team Chronic Disease Visit due on 09/06/2021 Influenza Vaccine(1) due on 07/23/2024 Covid-19 Vaccine( - 2023- season) Never done Cervical Cancer Screening due on 08/14/2027 DTaP,Tdap,Td Vaccine(2 - Td or Tdap) due on 05/30/2029 Hepatitis C Screening Addressed HPV Vaccine Aged Out Data reviewed Latest Ref Rng 08/30/2024 Triglyceride 149 mg/dL 82 (E) CHOLESTEROL, TOTAL 0 - 200 MG/DL 167 (E) HDC-L 41 mg/dL 55 ! (E) LDL Chol, calculated 130 MG/DL 96 (E) Hemoglobin A1C 3.8 - 5.6 % 5.4 (E) Vitamin D 25 OH 30 - 100 ng/mL 43.6 (E) TSH 0.358 - 3.740 IU/ml 2.000 (E) A/P ASSESSMENT/PLAN: 1. Well adult exam - ICD9: V70.0, ICD10: Z00.00 (primary diagnosis) - Counseled on healthy diet and regular exercise - Discussed need and benefit for weight loss. BMI 42.93 kg/(m^2) - Follow up for annual exam in one year 2. Migraine with aura and with status migrainosus, not intractable - ICD9: 346.03, ICD10: G43.101 - refill Imitrex to use as needed. 3. Exercise-induced asthma - ICD9: 493.81, ICD10: J45.990 - Exercise-induced asthma stable, not requiring a rescue inhaler. - Avoidance of triggers recommended 4. Morbid obesity due to excess calories (HCC) - ICD9: 278.01, ICD10: E66.01 Weight decreasing - Behavioral intervention: working with [facility] 5. Polycystic ovaries - ICD9: 256.4, ICD10: E28.2 - on metformin per MANAGER OF SELECTION AND ASSESSMENT. 6. Screening for depression - ICD9: V79.0, ICD10: Z13.31 - DEPRESSION SCREENING 7. Encounter for screening examination for other mental health and behavioral disorders - ICD9: V79.8, ICD10: Z13.39 - ANXIETY SCREENING Requested Prescriptions Signed Prescriptions Disp Refills SUMAtriptan (IMITREX) 100 mg tablet 12 tablet 3 Sig: One table by mouth with onset of headache. Can repeat in and hour but only 2 tabs in 24 hrs. F/u in a year for WAE sooner if issues. Casper Tariq MD documented in this encounter [facility] 12-04-2024 Note HNO ID: [id number] Author: IAN MCDOWELL APRN.PASTRY ASSISTANT Service: ? Author Type: Nurse Practitioner Type: Progress Notes Filed: 12/04/2024 08:08 Note Text: Subjective HPI HPI Fabian Baum is a 39 year old female who presents today for CC of sinus pressure, cough. This started 3 weeks ago. Has tried otc medication for relief. Symptoms are worsened by nothing. Risk factors sick exposures, hx of allergies. Nonsmoker. Denies possibility of being . .Patient presents with: Sinus Problem: sinus pressure, drainage, cough x 3 weeks PAST MEDICAL HISTORY Diagnosis Date Actinic skin damage 02/12/2013 Atypical nevus of upper arm 02/12/2013 Exercise-induced asthma Family history of thyroid disease 09/06/2020 Melanocytic nevus of neck 02/12/2013 Migraine with aura and with status migrainosus, not intractable 12/17/2015 Morbid obesity due to excess calories (HCC) childhood Other proteinuria 01/24/202301/2023: 24 hr urine protein was normal. (check Q1-2 yrs) Polycystic ovaries has insulin resistance due to this PVC's (premature ventricular contractions) 12/11/2020 Per event monitor 09/[address] Rodriguez Sinus tachycardia 12/11/2020 Per event monitor 09/2020 Viral warts, unspecified 02/12/2013 Well adult exam 12/15/2013 Last done: 05/30/2019 PAST SURGICAL HISTORY Procedure Laterality Date DELIVERY ONLY 02/12/12 , low transverse ESSURE 2017 placed in both falopian tubes [facility] PAST SURGICAL HISTORY OF aprox. 1996 removal of bone spur pressing on nerve medial left foot STRESS ECHO 09/23/2020 normal TONSILLECTOMY PRIMARY/SECONDARY Tonsillectomy ALLERGIES Adipex-P [Phentermine Hcl] MEDICATIONS cetirizine (ZYRTEC) 10 mg tablet Take 10 mg by mouth once daily. cyclobenzaprine (FLEXERIL) 10 mg tablet Take 1 tablet by mouth three times a day as needed for muscle spasm. metFORMIN ER (GLUCOPHAGE XR) 500 mg 24 hr tablet albuterol HFA (PROVENTIL HFA, VENTOLIN HFA) 90 mcg/actuation inhaler Inhale 1 Puff as instructed every 4 hours as needed. COMPOUNDED PRESCRIPTION Massage therapy for the treatment and prevention of migraine headaches. Once every other week for 10 treatments. Dx: G43.101 doxycycline (VIBRA-TABS) 100 mg tablet Take 1 tablet by mouth two times a day for 7 days. predniSONE (DELTASONE) 20 mg tablet Take 2 tablets by mouth once daily for 5 days. predniSONE (DELTASONE) 10 mg tablet Take 4 tabs daily for 3 days, then 2 tabs daily for 3 days, then 1 tab daily for 3 days with food. (Patient not taking: Reported on 12/04/2024) SUMAtriptan (IMITREX) 100 mg tablet One table by mouth with onset of headache. Can repeat in and hour but only 2 tabs in 24 hrs. (Patient not taking: Reported on 12/04/2024) FAMILY HISTORY Problem Relation Age of Onset Thyroid Mother delisa's, on synthroid Hypertension Mother Breast Cancer Mother other (hypercholesterolemia) Mother other (testicular cancer) Brother Diabetes Maternal Grandmother Thyroid Maternal Grandmother Hypertension Maternal Grandmother other (bladder cancer) Maternal Grandmother Older age, caught early Hypertension Maternal Grandfather Thyroid Paternal Grandmother other (SVT) Paternal Grandmother along with her mother, grandmother and aunt other (myesthenia gravis) Paternal Grandfather Diabetes Maternal Uncle Breast Cancer Other Cousin/Paternal Colon Cancer No Family History Prostate Cancer No Family History Ovarian cancer No Family History Uterine Cancer No Family History Coronary Artery Disease No Family History Social History Tobacco Use Smoking status: Never Smokeless tobacco: Never Substance Use Topics Alcohol use: Yes Alcohol/week: 1.0 standard drink of alcohol Types: 1 Cans of Beer (12oz) per week Comment: Rarely Drug use: No Review of Systems Constitutional: Negative for fever. HENT: Positive for congestion and sinus pain. Negative for ear pain, nosebleeds and sore throat. Respiratory: Positive for cough. Negative for shortness of breath and wheezing. Musculoskeletal: Negative for neck pain. Skin: Negative for itching and rash. Objective Blood pressure 124/80, pulse 84, temperature 36.2 ?C (97.1 ?F), resp. rate 16, weight 118.2 kg (260 lb 9.3 oz), last menstrual period 09/05/2020, SpO2 97%. Physical Exam Constitutional: General: She is not in acute distress. Appearance: She is not toxic-appearing or diaphoretic. HENT: Head: Normocephalic and atraumatic. Cardiovascular: Rate and Rhythm: Normal rate and regular rhythm. Heart sounds: Normal heart sounds, S1 normal and S2 normal. Pulmonary: Effort: Pulmonary effort is normal. Breath sounds: Normal breath sounds. Lymphadenopathy: Cervical: No cervical adenopathy. Right cervical: No superficial cervical adenopathy. Left cervical: No superficial cervical adenopathy. Neurological: Mental Status: She is alert and oriented to person, (more content not included)... [facility] 12-04-2024 History of Present illness Narrative Subjective HPI HPI Fabian Baum is a 39 year old female who presents today for CC of sinus pressure, cough. This started 3 weeks ago. Has tried otc medication for relief. Symptoms are worsened by nothing. Risk factors sick exposures, hx of allergies. Nonsmoker. Denies possibility of being . .Patient presents with: Sinus Problem: sinus pressure, drainage, cough x 3 weeks PAST MEDICAL HISTORY Diagnosis Date Actinic skin damage 02/12/2013 Atypical nevus of upper arm 02/12/2013 Exercise-induced asthma Family history of thyroid disease 09/06/2020 Melanocytic nevus of neck 02/12/2013 Migraine with aura and with status migrainosus, not intractable 12/17/2015 Morbid obesity due to excess calories (HCC) childhood Other proteinuria 01/24/202301/2023: 24 hr urine protein was normal. (check Q1-2 yrs) Polycystic ovaries has insulin resistance due to this PVC's (premature ventricular contractions) 12/11/2020 Per event monitor 09/[address] Rodriguez Sinus tachycardia 12/11/2020 Per event monitor 09/2020 Viral warts, unspecified 02/12/2013 Well adult exam 12/15/2013 Last done: 05/30/2019 PAST SURGICAL HISTORY Procedure Laterality Date DELIVERY ONLY 02/12/12 , low transverse ESSURE 2017 placed in both falopian tubes [facility] PAST SURGICAL HISTORY OF aprox. 1996 removal of bone spur pressing on nerve medial left foot STRESS ECHO 09/23/2020 normal TONSILLECTOMY PRIMARY/SECONDARY <AGE 13 9-18-06 Tonsillectomy ALLERGIES Adipex-P [Phentermine Hcl] MEDICATIONS cetirizine (ZYRTEC) 10 mg tablet Take 10 mg by mouth once daily. cyclobenzaprine (FLEXERIL) 10 mg tablet Take 1 tablet by mouth three times a day as needed for muscle spasm. metFORMIN ER (GLUCOPHAGE XR) 500 mg 24 hr tablet albuterol HFA (PROVENTIL HFA, VENTOLIN HFA) 90 mcg/actuation inhaler Inhale 1 Puff as instructed every 4 hours as needed. COMPOUNDED PRESCRIPTION Massage therapy for the treatment and prevention of migraine headaches. Once every other week for 10 treatments. Dx: G43.101 doxycycline (VIBRA-TABS) 100 mg tablet Take 1 tablet by mouth two times a day for 7 days. predniSONE (DELTASONE) 20 mg tablet Take 2 tablets by mouth once daily for 5 days. predniSONE (DELTASONE) 10 mg tablet Take 4 tabs daily for 3 days, then 2 tabs daily for 3 days, then 1 tab daily for 3 days with food. (Patient not taking: Reported on 12/04/2024) SUMAtriptan (IMITREX) 100 mg tablet One table by mouth with onset of headache. Can repeat in and hour but only 2 tabs in 24 hrs. (Patient not taking: Reported on 12/04/2024) FAMILY HISTORY Problem Relation Age of Onset Thyroid Mother delisa's, on synthroid Hypertension Mother Breast Cancer Mother other (hypercholesterolemia) Mother other (testicular cancer) Brother Diabetes Maternal Grandmother Thyroid Maternal Grandmother Hypertension Maternal Grandmother other (bladder cancer) Maternal Grandmother Older age, caught early Hypertension Maternal Grandfather Thyroid Paternal Grandmother other (SVT) Paternal Grandmother along with her mother, grandmother and aunt other (myesthenia gravis) Paternal Grandfather Diabetes Maternal Uncle Breast Cancer Other Cousin/Paternal Colon Cancer No Family History Prostate Cancer No Family History Ovarian cancer No Family History Uterine Cancer No Family History Coronary Artery Disease No Family History Social History Tobacco Use Smoking status: Never Smokeless tobacco: Never Substance Use Topics Alcohol use: Yes Alcohol/week: 1.0 standard drink of alcohol Types: 1 Cans of Beer (12oz) per week Comment: Rarely Drug use: No Review of Systems Constitutional: Negative for fever. HENT: Positive for congestion and sinus pain. Negative for ear pain, nosebleeds and sore throat. Respiratory: Positive for cough. Negative for shortness of breath and wheezing. Musculoskeletal: Negative for neck pain. Skin: Negative for itching and rash. Objective Blood pressure 124/80, pulse 84, temperature 36.2 C (97.1 F), resp. rate 16, weight 118.2 kg (260 lb 9.3 oz), last menstrual period 09/05/2020, SpO2 97%. Physical Exam Constitutional: General: She is not in acute distress. Appearance: She is not toxic-appearing or diaphoretic. HENT: Head: Normocephalic and atraumatic. Cardiovascular: Rate and Rhythm: Normal rate and regular rhythm. Heart sounds: Normal heart sounds, S1 normal and S2 normal. Pulmonary: Effort: Pulmonary effort is normal. Breath sounds: Normal breath sounds. Lymphadenopathy: Cervical: No cervical adenopathy. Right cervical: No superficial cervical adenopathy. Left cervical: No superficial cervical adenopathy. Neurological: Mental Status: She is alert and oriented to person, place, and time. Gait: Gait is intact. ASSESSMENT/PLAN: 1. Sinobronchitis - ICD9: 473.9, 490, ICD10: J32.9, J40 - Will begin treatment with as per antibiotic as written, see orders - Supportive care with plenty of fluids, rest, and analgesia prn. - Follow up in 3-5 days if symptoms persist or worsen. - DOXYCYCLINE HYCLATE 100 MG TABLET - PREDNISONE 20 MG TABLET Ian Mcdowell APRN.PASTRY ASSISTANT documented in this encounter [facility] 08-30-2024 Note HNO ID: [id number] Author: YASMIN IBARRA LPN Service: ? Author Type: LICENSED NURSE Type: Progress Notes Filed: 08/30/2024 12:27 Note Text: Scan on 08/30/2024 8:10 AM by ProviderMichael PA-C: Chemistry Scan on 08/30/2024 8:38 AM by Michael Lazcano PA-C: Chemistry Scan on 08/30/2024 10:12 AM by Michael Lazcano PA-C: Chemistry [facility] 08-30-2024 History of Present illness Narrative Scan on 08/30/2024 8:10 AM by Michael Lazcano PA-C: Chemistry Scan on 08/30/2024 8:38 AM by Michael Lazcano PA-C: Chemistry Scan on 08/30/2024 10:12 AM by Michael Lazcano PA-C: Chemistry documented in this encounter [facility] 08-30-2024 Note HNO ID: [id number] Author: YASMIN IBARRA LPN Service: ? Author Type: LICENSED NURSE Type: Progress Notes Filed: 08/30/2024 08:04 Note Text: Scan on 08/30/2024 7:37 AM by Michael Lazcano PA-C: Hematology [facility] 08-30-2024 History of Present illness Narrative Scan on 08/30/2024 7:37 AM by Michael Lazcano PA-C: Hematology documented in this encounter [facility] 06-21-2024 History of Present illness Narrative This note was created using Screenleapter. Subjective Fabian Baum is a 38 year old female. 38 year old female with PMH migraines, PCOS and asthma presents for musculoskeletal. 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 Has since progressed into right neck, right back, and right shoulder +tightness Pain exacerbated with movement Denies direct blow or injury Denies weakness Denies numbness or tingling Denies CP or SOB Denies dyspnea Has used Tylenol and Advil Right hand dominant. Endorses today she feels slightly better. The history is provided by the patient. No spanish interpreter was used. Musculoskeletal Problem This is a new problem. The current episode started in the past 7 days. The problem occurs constantly. The problem has been gradually improving. Associated symptoms include neck pain. Pertinent negatives include no abdominal pain, anorexia, arthralgias, change in bowel habit, chest pain, chills, congestion, coughing, diaphoresis, fatigue, fever, headaches, joint swelling, myalgias, nausea, numbness, rash, sore throat, swollen glands, urinary symptoms, vertigo, visual change, vomiting or weakness. Exacerbated by: movement and touching. She has tried acetaminophen, rest and NSAIDs for the symptoms. The treatment provided moderate relief. PAST MEDICAL HISTORY 02/12/2013: Actinic skin damage 02/12/2013: Atypical nevus of upper arm No date: Exercise-induced asthma 09/06/2020: Family history of thyroid disease 02/12/2013: Melanocytic nevus of neck 12/17/2015: Migraine with aura and with status migrainosus, not intractable No date: Morbid obesity due to excess calories (HCC) Comment: childhood 01/24/2023: Other proteinuria Comment: 01/2023: 24 hr urine protein was normal. (check Q1-2 yrs) No date: Polycystic ovaries Comment: has insulin resistance due to this 12/11/2020: PVC's (premature ventricular contractions) Comment: Per event monitor 09/2020 No date: Routine gynecological examination Comment: Dr. Rodriguez 12/11/2020: Sinus tachycardia Comment: Per event monitor 09/202002/12/2013: Viral warts, unspecified 12/15/2013: Well adult exam Comment: Last done: 05/30/2019 PAST SURGICAL HISTORY 02/12/12: DELIVERY ONLY Comment: , low transverse 2017: ESSURE Comment: placed in both falopian tubes No date: HSG aprox. 1997: PAST SURGICAL HISTORY OF Comment: removal of bone spur pressing on nerve medial left foot 09/23/2020: STRESS ECHO Comment: normal 08-09-06: TONSILLECTOMY PRIMARY/SECONDARY <AGE 13 Comment: Tonsillectomy ALLERGIES Adipex-P [Phentermine Hcl] MEDICATIONS metFORMIN ER (GLUCOPHAGE XR) 500 mg 24 hr tablet SUMAtriptan (IMITREX) 100 mg tablet One table by mouth with onset of headache. Can repeat in and hour but only 2 tabs in 24 hrs. albuterol HFA (PROVENTIL HFA, VENTOLIN HFA) 90 mcg/actuation inhaler Inhale 1 Puff as instructed every 4 hours as needed. COMPOUNDED PRESCRIPTION Massage therapy for the treatment and prevention of migraine headaches. Once every other week for 10 treatments. Dx: G43.101 cetirizine (ZYRTEC) 10 mg tablet Take 10 mg by mouth once daily. predniSONE (DELTASONE) 10 mg tablet Take 4 tabs daily for 3 days, then 2 tabs daily for 3 days, then 1 tab daily for 3 days with food. cyclobenzaprine (FLEXERIL) 10 mg tablet Take 1 tablet by mouth three times a day as needed for muscle spasm. FAMILY HISTORY Problem Relation Age of Onset Thyroid Mother delisa's, on synthroid Hypertension Mother Breast Cancer Mother other (hypercholesterolemia) Mother other (testicular cancer) Brother Diabetes Maternal Grandmother Thyroid Maternal Grandmother Hypertension Maternal Grandmother other (bladder cancer) Maternal Grandmother Older age, caught early Hypertension Maternal Grandfather Thyroid Paternal Grandmother other (SVT) Paternal Grandmother along with her mother, grandmother and aunt other (myesthenia gravis) Paternal Grandfather Diabetes Maternal Uncle Breast Cancer Other Cousin/Paternal Colon Cancer No Family History Prostate Cancer No Family History Ovarian cancer No Family History Uterine Cancer No Family History Coronary Artery Disease No Family History Social History Tobacco Use Smoking status: Never Smokeless tobacco: Never Substance Use Topics Alcohol use: Yes Alcohol/week: 1.0 standard drink of alcohol Types: 1 Cans of Beer (12oz) per week Comment: Rarely Drug use: No Review of Systems Constitutional: Negative for chills, diaphoresis, fatigue and fever. HENT: Negative for congestion and sore throat. Respiratory: Negative for apnea, cough and chest tightness. Cardiovascular: Negative for chest pain. Gastrointestinal: Negative for abdominal pain, anorexia, change in bowel habit, nausea and vomiting. Musculoskeletal: Positive for back pain and neck pain. Negative for arthralgias, joint swelling and myalgias. Shoulder pain Skin: Negative for rash. Allergic/Immunologic: Negative for environmental allergies, food allergies and immunocompromised state. Neurological: Negative for vertigo, weakness, numbness and headaches. Hematological: Negative for adenopathy. Does not bruise/bleed easily. Psychiatric/Behavioral: Negative for agitation and behavioral problems. Objective BP 138/88 Pulse 100 Temp 37.2 C (99 F) Resp 18 Wt 119.9 kg (264 lb 5.3 oz) LMP 09/05/2020 SpO2 98% BMI 45.37 kg/m Physical Exam Vitals and nursing note reviewed. Constitutional: General: She is not in acute distress. Appearance: Normal appearance. She is normal weight. She is not ill-appearing, toxic-appearing or diaphoretic. HENT: Head: Normocephalic and atraumatic. Right Ear: Ear canal and external ear normal. Left Ear: Ear canal and external ear normal. Nose: Nose normal. No congestion or rhinorrhea. Mouth/Throat: Mouth: Mucous membranes are moist. Pharynx: No oropharyngeal exudate or posterior oropharyngeal erythema. Eyes: General: Right eye: No discharge. Left eye: No discharge. Extraocular Movements: Extraocular movements intact. Conjunctiva/sclera: Conjunctivae normal. Pupils: Pupils are equal, round, and reactive to light. Cardiovascular: Rate and Rhythm: Normal rate and regular rhythm. Pulses: Normal pulses. Heart sounds: Normal heart sounds. No murmur heard. No friction rub. Pulmonary: Effort: Pulmonary effort is normal. No respiratory distress. Breath sounds: Normal breath sounds. No stridor. No wheezing, rhonchi or rales. Chest: Chest wall: No tenderness. Abdominal: General: Abdomen is flat. There is no distension. Palpations: Abdomen is soft. There is no mass. Tenderness: There is no abdominal tenderness. There is no right CVA tenderness, left CVA tenderness, guarding or rebound. Hernia: No hernia is present. Musculoskeletal: General: Tenderness present. No swelling, deformity or signs of injury. Normal range of motion. Cervical back: Normal range of motion and neck supple. No rigidity. Right lower leg: No edema. Left lower leg: No edema. Comments: Patient has diffuse TTP right sternocloidmastoid process +tenderness & tightness to right trapezius region Strength equal +neuro +sensation Skin tact Lymphadenopathy: Cervical: No cervical adenopathy. Skin: General: Skin is warm and dry. Capillary Refill: Capillary refill takes less than 2 seconds. Coloration: Skin is not jaundiced or pale. Findings: No bruising, erythema, lesion or rash. Neurological: General: No focal deficit present. Mental Status: She is alert and oriented to person, place, and time. Cranial Nerves: No cranial nerve deficit. Sensory: No sensory deficit. Motor: No weakness. Coordination: Coordination normal. Gait: Gait normal. Psychiatric: Mood and Affect: Mood normal. Behavior: Behavior normal. Thought Content: Thought content normal. Judgment: Judgment normal. Assessment and Plan ASSESSMENT/PLAN: 1. 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 Author Type: Nurse Practitioner Type: Progress Notes Filed: 06/21/2024 13:06 Note Text: This note was created using NoteWriter. Subjective Fabian Baum is a 38 year old female. 38 year old female with PMH migraines, PCOS and asthma presents for musculoskeletal. 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 Has since progressed into right neck, right back, and right shoulder +tightness Pain exacerbated with movement Denies direct blow or injury Denies weakness Denies numbness or tingling Denies CP or SOB Denies dyspnea Has used Tylenol and Advil Right hand dominant. Endorses today she feels slightly better. The history is provided by the patient. No spanish interpreter was used. Musculoskeletal Problem This is a new problem. The current episode started in the past 7 days. The problem occurs constantly. The problem has been gradually improving. Associated symptoms include neck pain. Pertinent negatives include no abdominal pain, anorexia, arthralgias, change in bowel habit, chest pain, chills, congestion, coughing, diaphoresis, fatigue, fever, headaches, joint swelling, myalgias, nausea, numbness, rash, sore throat, swollen glands, urinary symptoms, vertigo, visual change, vomiting or weakness. Exacerbated by: movement and touching. She has tried acetaminophen, rest and NSAIDs for the symptoms. The treatment provided moderate relief. PAST MEDICAL HISTORY 02/12/2013: Actinic skin damage 02/12/2013: Atypical nevus of upper arm No date: Exercise-induced asthma 09/06/2020: Family history of thyroid disease 02/12/2013: Melanocytic nevus of neck 12/17/2015: Migraine with aura and with status migrainosus, not intractable No date: Morbid obesity due to excess calories (HCC) Comment: childhood 01/24/2023: Other proteinuria Comment: 01/2023: 24 hr urine protein was normal. (check Q1-2 yrs) No date: Polycystic ovaries Comment: has insulin resistance due to this 12/11/2020: PVC's (premature ventricular contractions) Comment: Per event monitor 09/2020 No date: Routine gynecological examination Comment: Dr. Rodriguez 12/11/2020: Sinus tachycardia Comment: Per event monitor 09/202002/12/2013: Viral warts, unspecified 12/15/2013: Well adult exam Comment: Last done: 05/30/2019 PAST SURGICAL HISTORY 02/12/12: DELIVERY ONLY Comment: , low transverse 2017: ESSURE Comment: placed in both falopian tubes No date: [facility]G aprox. 1996: PAST SURGICAL HISTORY OF Comment: removal of bone spur pressing on nerve medial left foot 09/23/2020: STRESS ECHO Comment: normal 08-09-06: TONSILLECTOMY PRIMARY/SECONDARY Comment: Tonsillectomy ALLERGIES Adipex-P [Phentermine Hcl] MEDICATIONS metFORMIN ER (GLUCOPHAGE XR) 500 mg 24 hr tablet SUMAtriptan (IMITREX) 100 mg tablet One table by mouth with onset of headache. Can repeat in and hour but only 2 tabs in 24 hrs. albuterol HFA (PROVENTIL HFA, VENTOLIN HFA) 90 mcg/actuation inhaler Inhale 1 Puff as instructed every 4 hours as needed. COMPOUNDED PRESCRIPTION Massage therapy for the treatment and prevention of migraine headaches. Once every other week for 10 treatments. Dx: G43.101 cetirizine (ZYRTEC) 10 mg tablet Take 10 mg by mouth once daily. predniSONE (DELTASONE) 10 mg tablet Take 4 tabs daily for 3 days, then 2 tabs daily for 3 days, then 1 tab daily for 3 days with food. cyclobenzaprine (FLEXERIL) 10 mg tablet Take 1 tablet by mouth three times a day as needed for muscle spasm. FAMILY HISTORY Problem Relation Age of Onset Thyroid Mother delisa's, on synthroid Hypertension Mother Breast Cancer Mother other (hypercholesterolemia) Mother other (testicular cancer) Brother Diabetes Maternal Grandmother Thyroid Maternal Grandmother Hypertension Maternal Grandmother other (bladder cancer) Maternal Grandmother Older age, caught early Hypertension Maternal Grandfather Thyroid Paternal Grandmother other (SVT) Paternal Grandmother along with her mother, grandmother and aunt other (myesthenia gravis) Paternal Grandfather Diabetes Maternal Uncle Breast Cancer Other Cousin/Paternal Colon Cancer No Family History Prostate Cancer No Family History Ovarian cancer No Family History Uterine Cancer No Family History Coronary Artery Disease No Family History Social History Tobacco Use Smoking status: Never Smokeless tobacco: Never Substance Use Topics Alcohol use: Yes Alcohol/week: 1.0 standard drink of alcohol Types: 1 Cans of Beer (12oz) per week Comment: Rarely Drug use: No Review of Systems Constitutional: Negative for chills, diaphoresis, fatigue and fever. HENT: Negative for congestion and sore throat. Respiratory: Negative for apnea, cough and chest tightness. Cardiovascular: Negative for chest pain. Gastrointestinal: Negative for abdom (more content not included)... [facility] 01-12-2024 Miscellaneous Notes Form has been faxed to [facility]. Pt notified of same. Yasmin Ibarra LPN Consult form filled out. Patient calling asking for referral to [facility] for the [facility]. She was not given a fax number for them. Please advise documented in this encounter [facility] 04-02-2023 History of Present illness Narrative Scan on 03/30/2023 1:35 PM by External Provider, KORY: Chemistry Scan on 03/27/2023 10:07 AM by External Provider, KORY: Chemistry Melva Torrez MA documented in this encounter [facility] 02-02-2023 Miscellaneous Notes Patient was notified Celia Ramos Ma Let patient know her 24 hr urine protein was normal. We may check this every 1-2 yrs. documented in this encounter [facility] 12-28-2022 Miscellaneous Notes Let patient know I placed an order for repeat UA in a month. Depending on results may need additional w/u. If normal then no other studies needed. Please see pt message. Do you want her to schedule an OV or complete another Urine sample? Deanne Ojeda Ma documented in this encounter [facility] 12-22-2022 Miscellaneous Notes Phone call placed patient advised (see prior provider encounter) Patient verbalized understanding, agreed with plan of care. Rianna Sinclair LPN Please call patient and let her know that urine culture came back negative for bacterial growth. She needs to follow-up with PCP within 1 to 2 weeks as discussed at the visit for repeat UA and culture. She may continue her Macrobid. documented in this encounter [facility] 12-21-2022 History of Present illness Narrative 12/21/2022 Patient presents with: Urinary Frequency: Frequency, urgency and abdominal pain x 1 day SUBJECTIVE: This is a 37 year old that is here today for Complaint(s) of urinary frequency x 1 day. + slight lower abdominal pain. Notes urgency and discomfort with urination. + low back discomfort associated. Denies fever/chills, vomiting, blood in urine, diarrhea, . No change in (past surgical history tubal ligation). No new sexual partners. No abnormal vaginal discharge. No history of recurrent UTIs. No UTI in the last 6 months. Last A1C 3 months ago was 5.5, controlled with diet. PAST MEDICAL HISTORY Diagnosis Date Actinic skin damage 02/12/2013 Atypical nevus of upper arm 02/12/2013 Exercise-induced asthma Family history of thyroid disease 09/06/2020 Melanocytic nevus of neck 02/12/2013 Migraine with aura and with status migrainosus, not intractable 12/17/2015 Morbid obesity due to excess calories (HCC) childhood Polycystic ovaries has insulin resistance due to this PVC's (premature ventricular contractions) 12/11/2020 Per event monitor 09/[address] Rodriguez Sinus tachycardia 12/11/2020 Per event monitor 09/2020 Viral warts, unspecified 02/12/2013 Well adult exam 12/15/2013 Last done: 05/30/2019 ALLERGIES Adipex-P [Phentermine Hcl] MEDICATIONS Current Outpatient Medications Medication Sig SUMAtriptan (IMITREX) 100 mg tablet One table by mouth with onset of headache. Can repeat in and hour but only 2 tabs in 24 hrs. albuterol HFA (PROVENTIL HFA, VENTOLIN HFA) 90 mcg/actuation inhaler Inhale 1 Puff as instructed every 4 hours as needed. COMPOUNDED PRESCRIPTION Massage therapy for the treatment and prevention of migraine headaches. Once every other week for 10 treatments. Dx: G43.101 No current facility-administered medications for this visit. SOCIAL HISTORY Social History Tobacco Use Smoking status: Never Smokeless tobacco: Never Substance Use Topics Alcohol use: Yes Alcohol/week: 2.5 standard drinks Types: 1 Cans of Beer (12oz) per week Comment: Rarely Drug use: No REVIEW OF SYSTEMS See HPI OBJECTIVE: BP 110/78 Pulse 79 Temp 36.1 C (97 F) (Tympanic) Resp 18 Wt 122.3 kg (269 lb 9.6 oz) LMP 09/05/2020 SpO2 99% BMI 46.28 kg/m APPEARANCE Well appearing, alert, in no acute distress, well-hydrated, well nourished. HEART RRR with normal S1 and S2, LUNG clear to auscultation ABDOMEN bowel sounds normoactive, soft, mild suprapubic discomfort. No rebound, rigidity or guarding. non-distended, without organomegaly or palpable masses, BACK: Normal exam, no CVA TTP ASSESSMENT/PLAN: 1. Urinary frequency - ICD9: 788.41, ICD10: R35.0 acute - UA positive for hematuria and proteinuria - Send urine for culture - Begin treatment with Macrobid 100 mg BID for 5 days - Patient education for prevention given If urine culture is negative-advise close f/u with PCP in the next 2-3 weeks to recheck urine and symptoms. Patient understands and agrees. F/U sooner if worsening or new symptoms. - UA DIP, URINE (POC) - URINE CULTURE - URINALYSIS, WITH MICROSCOPIC - NITROFURANTOIN MONOHYDRATE & MACROCRYSTAL 100 MG ORAL CAP The patient indicates understanding of these issues and agrees with the plan. Reviewed red flags and when to seek care sooner. 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 Recent illness: No. Treatment: mable dry, tylenol, routine claritin MEDICATIONS: meclizine (ANTIVERT) 12.5 mg tab Take 1 tablet by mouth every 6 hours as needed (dizziness). SUMAtriptan (IMITREX) 100 mg tablet One table by mouth with onset of headache. Can repeat in and hour but only 2 tabs in 24 hrs. albuterol HFA (PROVENTIL HFA, VENTOLIN HFA) 90 mcg/actuation inhaler Inhale 1 Puff as instructed every 4 hours as needed. COMPOUNDED PRESCRIPTION Massage therapy for the treatment and prevention of migraine headaches. Once every other week for 10 treatments. Dx: G43.101 ALLERGIES: ALLERGIES Allergen Reactions Adipex-P [Phentermi* Other: See Comments Palpitations/rapid HR VITALS: BP 130/84 Pulse 90 Temp 36.4 C (97.5 F) Resp 18 Wt 117.5 kg (259 lb) LMP 09/05/2020 SpO2 98% BMI 44.46 kg/m PHYSICAL EXAM: GEN: pleasant, no acute distress, alert SKIN: clear vesicular ~10cm patch ventral right wrist. Erythema, bumpy, and vesicular patches on the right finger, left forearm, neck/chin. Mild erythema most of abdomen. ASSESSMENT/PLAN: 1. Allergic dermatitis due to poison mable - ICD9: 692.6, ICD10: L23.7 - PREDNISONE 10 MG TABLET - taper. Tolerated without side effect previously. Aneudy Valera MD documented in this encounter [facility] 01-20-2012 History of Past i llness Narrative Problem Noted Date Resolved Date High-risk 01/20/2012 02/18/2012 Gestational hypertension 01/20/2012 012 Supervision of normal first 01/06/2012 01/20/2012 Routine general medical exam ination at a health care facility 01/30/2010 01/06/2012 Overview: 06/28 04/29 Routine gynecological examination 01/30/2010 01/06/2012 Overview: [facility] Susie Headache(784.0) 01/30/2010 01/06/2012 Pain in limb 07/22/2007 01/06/2012 Neuralgia, neuritis, and radiculitis, unspecifie d 07/22/2007 01/06/2012 Ingrowing nail 07/22/2007 01/06/2012 documented as of this encounter (statuses as of 08/01/2022) [facility] History of Past illness Narrative* Problem Noted Date Resolved Date High-risk 01/20/2012 02/18/2012 Gestational hypertension 01/20/2012 012 Supervision of normal first 01/06/2012 01/20/2012 Routine general medical exam ination at a health care facility 01/30/2010 01/06/2012 Overview: 06/28 608 Routine gynecological examination 01/30/2010 01/06/2012 Overview: [facility], [facility] Dillard Headache(784.0) 01/30/2010 01/06/2012 Pain in limb 07/22/2007 01/06/2012 Neuralgia, neuritis, and radiculitis, unspecifie d 07/22/2007 01/06/2012 Ingrowing nail 07/22/2007 01/06/2012 documented as of this encounter (statuses as of 08/24/2022) [facility] History of Past illness Narrative* Problem Noted Date Resolved Date High-risk 01/20/2012 02/18/2012 Gestational hypertension 01/20/2012 012 Supervision of normal first 01/06/2012 01/20/2012 Routine general medical exam ination at a health care facility 01/30/2010 01/06/2012 Overview: 06/28 608 Routine gynecological examination 01/30/2010 01/06/2012 Overview: [facility], [facility] Susie Headache(784.0) 01/30/2010 01/06/2012 Pain in limb 07/22/2007 01/06/2012 Neuralgia, neuritis, and radiculitis, unspecifie d 07/22/2007 01/06/2012 Ingrowing nail 07/22/2007 01/06/2012 documented as of this encounter (statuses as of 08/25/2022) [facility] History of Past illness Narrative* Problem Noted Date Resolved Date High-risk 01/20/2012 02/18/2012 Gestational hypertension 01/20/2012 012 Supervision of normal first 01/06/2012 01/20/2012 Routine general medical exam ination at a health care facility 01/30/2010 01/06/2012 Overview: 06/28 608 Routine gynecological examination 01/30/2010 01/06/2012 Overview: [facility], [facility] Susie Headache(784.0) 01/30/2010 01/06/2012 Pain in limb 07/22/2007 01/06/2012 Neuralgia, neuritis, and radiculitis, unspecifie d 07/22/2007 01/06/2012 Ingrowing nail 07/22/2007 01/06/2012 documented as of this encounter (statuses as of 12/21/2022) [facility] History of Past illness Narrative* Problem Noted Date Resolved Date High-risk 01/20/2012 02/18/2012 Gestational hypertension 01/20/2012 012 Supervision of normal first 01/06/2012 01/20/2012 Routine general medical exam ination at a health care facility 01/30/2010 01/06/2012 Overview: 06/28 608 Routine gynecological examination 01/30/2010 01/06/2012 Overview: [facility], [facility] Susie Headache(784.0) 01/30/2010 01/06/2012 Pain in limb 07/22/2007 01/06/2012 Neuralgia, neuritis, and radiculitis, unspecifie d 07/22/2007 01/06/2012 Ingrowing nail 07/22/2007 01/06/2012 documented as of this encounter (statuses as of 12/22/2022) [facility] History of Past illness Narrative* Problem Noted Date Resolved Date High-risk 01/20/2012 02/18/2012 Gestational hypertension 01/20/2012 012 Supervision of normal first 01/06/2012 01/20/2012 Routine general medical exam ination at a health care facility 01/30/2010 01/06/2012 Overview: 06/28 608 Routine gynecological examination 01/30/2010 01/06/2012 Overview: [facility], [facility] Dillard Headache(784.0) 01/30/2010 01/06/2012 Pain in limb 07/22/2007 01/06/2012 Neuralgia, neuritis, and radiculitis, unspecifie d 07/22/2007 01/06/2012 Ingrowing nail 07/22/2007 01/06/2012 documented as of this encounter (statuses as of 12/28/2022) [facility] History of Past illness Narrative* Problem Noted Date Resolved Date High-risk 01/20/2012 02/18/2012 Gestational hypertension 01/20/2012 012 Supervision of normal first 01/06/2012 01/20/2012 Routine general medical exam ination at a health care facility 01/30/2010 01/06/2012 Overview: 06/28 04/29 Routine gynecological examination 01/30/2010 01/06/2012 Overview: [facility], [facility] Dillard Headache(784.0) 01/30/2010 01/06/2012 Pain in limb 07/22/2007 01/06/2012 Neuralgia, neuritis, and radiculitis, unspecifie d 07/22/2007 01/06/2012 Ingrowing nail 07/22/2007 01/06/2012 documented as of this encounter (statuses as of 02/02/2023) [facility] History of Past illness Narrative* Problem Noted Date Resolved Date High-risk 01/20/2012 02/18/2012 Gestational hypertension 01/20/2012 012 Supervision of normal first 01/06/2012 01/20/2012 Routine general medical exam ination at a health care facility 01/30/2010 01/06/2012 Overview: 06/2808 Routine gynecological examination 01/30/2010 01/06/2012 Overview: [facility], [facility] Dillard Headache(784.0) 01/30/2010 01/06/2012 Pain in limb 07/22/2007 01/06/2012 Neuralgia, neuritis, and radiculitis, unspecifie d 07/22/2007 01/06/2012 Ingrowing nail 07/22/2007 01/06/2012 documented as of this encounter (statuses as of 04/03/2023) [facility] History of Past illness Narrative* Problem Noted Date Diagnosed Date Resolved Date High-risk 01/20/2012 02/18/20 12 Gestational hypertension 01/20/201205/2012 Supervision of normal first 01/06/2012 01/20/2012 Routine general medical exam ination at a health care facility 01/30/2010 01/06/2012 Overview: 06/28 04/29 Routine gynecological examination 01/30/2010 01/06/2012 Overview: [facility], [facility] Susie Headache(784.0) 01/30/2010 01/06/2012 Pain in limb 07/22/2007 01/06/2012 Neuralgia, neuritis, and rad iculitis, unspecified 07/22/2007 01/06/2012 Ingrowing nail 07/22/2007 01/06/2012 documented as of this encounter (statuses as of 01/12/2024) [facility] note* Diagnosis Allergic dermatitis due to poison mable- Primary Contact dermatitis and other eczema due to plants (except food) [facility] Diagnosis Onset Date Resolution Status PCOS (polycystic ovarian syndrome) acute Encounter for routine gynecological examination noneactive [facility] Work Phone: Evaluation note* Diagnosis Urinary frequency- Primary [facility] Diagnosis Microscopic hematuria- Primary Proteinuria, unspecified type [facility] Diagnosis Other proteinuria [facility] Diagnosis Onset Date Resolution Status PCOS (polycystic ovarian syndrome) acute [facility] Work Phone: Evaluation note* Diagnosis Onset Date Resolution Status PCOS (polycystic ovarian syndrome) acute Class 3 obesity acute Fatigue acute PCOS (polycystic ovarian syndrome) acute Class 3 obesity acute Daytime hypersomnia acute [facility] Work Phone: evaluation noteNo assessment information available [facility] Work Phone: evaluation note* Diagnosis Strain of neck muscle, initial encounter- Primary Upper back strain, initial encounter [facility] Diagnosis Sinobronchitis- Primary Unspecified sinusitis (chronic) [facility] Diagnosis Well adult exam- Primary Routine general medical examination at a health care facility Migraine with aura and with status migrainosus, not intractable Migraine with aura, with intractable migraine, so stated, with status migrainosus Exercise-induced asthma Exercise induced bronchospasm Morbid obesity due to excess calories (HCC) Polycystic ovaries Screening for depression Encounter for screening examination for other mental health and behavioral disorders Family history of thyroid disease Family history of other endocrine and metabolic diseases Encounter for screening for cardiovascular disorders Screening for other and unspecified cardiovascular conditions Screening for diabetes mellitus (DM) Screening for diabetes mellitus documented in this encounter [facility] Summary Purpose Family History No Family History Records Found Relationship Condition Age at Onset Recorded Date/T christofer mother Malignant neoplasm of breast Unknown Disorder of thyroid Unknown Hypertension Unknown grandmother Malignant neoplasm Unknown Diabetes mellitus Unknown grandfather Hypertension Unknown Advance Directives No Advanced Directives Records FoundNo Advanced Directives Records FoundNo Advanced Directives Records Found Chief Complaint and Reason for Visit 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 Reason for Visit PCOS (polycystic ova nilay syndrome) Encounter for routine gynecological examination Chief Complaint 2-3 mo f/u E-ORDER Reason for Visit PCOS (polycystic ova nilay syndrome) Chief Complaint 2-3 mo f/u E-ORDER 2-3 mo pcos f/u Sleep apnea HYPERSOMNIA Reason for Visit PCOS (polycystic ova nilay syndrome) Class 3 obesity Fatigue PCOS (polycystic ovarian syndrome) Class 3 obesity Daytime hypersomnia Chief Complaint DIET COUNS & SURV, M ORBID OBESITY Additional Source Comments INFORMATION SOURCE (unrecogn ized section and content) DATE CREATED AUTHOR 09/23/2020 [facility] DATE CREATED AUTHOR AUTHOR'S ORGANIZ ATION 12/11/2024 [facility] DATE CREATED AUTHOR AUTHOR'S ORGANIZ ATION 02/01/2025 [facility] Source Comments (unrecognize d section and content) In the event this informatio n is protected by the Federal Confidentiality of Alcohol and Drug Abuse Patient Records regulations: The Federal rules restrict any use of the information to criminally investigate or prosecute any alcohol or drug abuse patient.[facility] event this information is protected by the Federal Confidentiality of Alcohol and Drug Abuse Patient Records regulations: The Federal rules restrict any use of the information to criminally investigate or prosecute any alcohol or drug abuse patient.[facility] the event this information is protected by the Federal Confidentiality of Alcohol and Drug Abuse Patient Records regulations: The Federal rules restrict any use of the information to criminally investigate or prosecute any alcohol or drug abuse patient.[facility] the event this information is protected by the Federal Confidentiality of Alcohol and Drug Abuse Patient Records regulations: The Federal rules restrict any use of the information to criminally investigate or prosecute any alcohol or drug abuse patient.[facility] the event this information is protected by the Federal Confidentiality of Alcohol and Drug Abuse Patient Records regulations: The Federal rules restrict any use of the information to criminally investigate or prosecute any alcohol or drug abuse patient.[facility] the event this information is protected by the Federal Confidentiality of Alcohol and Drug Abuse Patient Records regulations: The Federal rules restrict any use of the information to criminally investigate or prosecute any alcohol or drug abuse patient.[facility] the event this information is protected by the Federal Confidentiality of Alcohol and Drug Abuse Patient Records regulations: The Federal rules restrict any use of the information to criminally investigate or prosecute any alcohol or drug abuse patient.[facility] the event this information is protected by the Federal Confidentiality of Alcohol and Drug Abuse Patient Records regulations: The Federal rules restrict any use of the information to criminally investigate or prosecute any alcohol or drug abuse patient.[facility] the event this information is protected by the Federal Confidentiality of Alcohol and Drug Abuse Patient Records regulations: The Federal rules restrict any use of the information to criminally investigate or prosecute any alcohol or drug abuse patient.[facility] the event this information is protected by the Federal Confidentiality of Alcohol and Drug Abuse Patient Records regulations: The Federal rules restrict any use of the information to criminally investigate or prosecute any alcohol or drug abuse patient.[facility] the event this information is protected by the Federal Confidentiality of Alcohol and Drug Abuse Patient Records regulations: The Federal rules restrict any use of the information to criminally investigate or prosecute any alcohol or drug abuse patient.[facility] the event this information is protected by the Federal Confidentiality of Alcohol and Drug Abuse Patient Records regulations: The Federal rules restrict any use of the information to criminally investigate or prosecute any alcohol or drug abuse patient.[facility] the event this information is protected by the Federal Confidentiality of Alcohol and Drug Abuse Patient Records regulations: The Federal rules restrict any use of the information to criminally investigate or prosecute any alcohol or drug abuse patient.[facility] the event this information is protected by the Federal Confidentiality of Alcohol and Drug Abuse Patient Records regulations: The Federal rules restrict any use of the information to criminally investigate or prosecute any alcohol or drug abuse patient.[facility] Reason for Visit (unrecogniz ed section and content) Reason Comments Rash Poison mabel both arms , face, stomach, Pain at a 5-6 on right wrist x 3 days Reason Comments Outside Labs Results Reason Comments Outside Lab Results Reason Comments Urinary Frequency Frequency, urgency a nd abdominal pain x 1 day Reason Comments Results Reason Comments referral request Reason Comments Neck Pain right side neck, liberty ulder and head pain x 5 days, started in right armpit area Reason Comments Outside [id number] Ordered Reason Comments Sinus Problem sinus pressure, drai nage, cough x 3 weeks Reason Comments Physical Care Teams (unrecognized sec tion and content) Television Technician Relationship Specialty Start Date End Date Casper Tariq MD [address] [place] [address] PCP - General Family Practice 12/15/13 Television Technician Relationship Specialty Start Date End Date Casper Tariq MD [address] [place] [address] PCP - General Family Medicine 12/15/13 Television Technician Relationship Specialty Start Date End Date Casper Tariq MD [address] [place] [address] PCP - General Family Medicine 12/15/13 Television Technician Relationship Specialty [place] [address] [place] [id number] PCP - General Family Medicine 12/15/13 Television Technician Relationship Specialty [place] [address] [place] [id number] PCP - General Family Medicine 12/15/13 Team Status: Active Member Role Status Dates Dr. Casper Tariq MD Family Provider Active Dr. Casper Tariq MD Primary Care Provider Active Team Status: Inactive Member Role Status Dates Dr. Casper Tariq MD Primary Care Provider, Referri ng Provider Active Dr. Khloe Rodriguez MD Attending Provider Active Team Status: Inactive Member Role Status Dates Dr. Casper Tariq MD Primary Care Provider Active Dr. Khloe Rodriguez MD Attending Provider, Referr ing Provider Active Television Technician Relationship Specialty Start Date End Date Casper Tariq MD [address] [place], [place] [address] PCP - General Family Medicine 12/15/13 Team Status: Inactive Member Role Status Dates Dr. Casper Tariq MD Primary Care Provider, Referri ng Provider Active Eliza López MAIL MESSENGER CONTRACTOR, MAIL MESSENGER CONTRACTOR-C Attending Provider Active Team Status: Inactive Member Role Status Dates Dr. Casper Tariq MD Primary Care Provider Active Eliza López MAIL MESSENGER CONTRACTOR, MAIL MESSENGER CONTRACTOR-C Attending Provider, Referrin g Provider Active Television Technician Relationship Specialty Start Date End Date Casper Tariq MD [address] [place] [address] PCP - General Family Medicine 12/15/13 Team Status: Inactive Member Role Status Dates Dr. Casper Tariq MD Primary Care Provider Active Jina FLOYD PA Attending Provider, Referring Provider Active Television Technician Relationship Specialty Start Date End Date Casper Tariq MD [address] [place] [address] PCP - General Family Medicine 12/15/13 Television Technician Relationship Specialty Start Date End Date Casper Tariq MD [address] [place] [address] PCP - General Family Medicine 12/15/13 Television Technician Relationship Specialty Start Date End Date Casper Tariq MD [address] [place] [address] PCP - General Family Medicine 12/15/13 Television Technician Relationship Specialty Start Date End Date Casper Tariq MD [address] [place] [address] PCP - General Family Medicine 12/15/13 Nolvia Bazan APRN.CNP [address] [place] [address] [facility] 10/28/24 Jina Garsia PA-C [address] [place] [address] [facility] 10/28/24 Television Technician Relationship Specialty Start Date End Date Casper Tariq MD [address] [place] [address] PCP - General Family Medicine 12/15/13 Nolvia Bazan APRN.CNP [address] [place] [address] [facility] 10/28/24 Jina Garsia PA-C [address] [place] [address] [facility] 10/28/24 Goals (unrecognized section and content) Goals may be documented in a n alternate sectionGoals may be documented in an alternate sectionGoals may be documented in an alternate sectionGoals may be documented in an alternate section FOR RECORDS PERTAINING TO PATIENTS WHO ARE OR HAVE BEEN ENROLLED IN A CHEMICAL DEPENDENCY/SUBSTANCEABUSE PROGRAM, SOME INFORMATION MAY BE OMITTED. This clinical summary was aggregated from multiple sources. Caution should be exercised in using it in the provision of clinical care. This summary normalizes information from multiple sources, and as a consequence, information in this document may materially change the coding, format and clinical context of patient data. In addition, data may be omitted in some cases. CLINICAL DECISIONS SHOULD BE BASED ON THE PRIMARY CLINICAL RECORDS. [employer] provides no warranty or guarantee of the accuracy or completeness of information in this document.
[2025-09-22 08:06] LABS: Hematocrit 36.5 % (37-47); Hemoglobin 12.0 g/dL (12.0-15.0); Immature Granulocytes Count 0.040 X10^3/uL (0.0-0.0); Mean Corp Hgb Conc 32.9 g/dL (32-36); Mean Corpuscular Volume 78.7 fL (81-99); Mean Platelet Vol. 10.0 fl (6.2-12.0); NRBC Flagged by Analyzer 0 % (0-5); Platelet Count 271 K/mm3 (150-450); RBC Distribution Width CV 14.4 % (11.6-14.6); RBC Distribution Width SD 41.1 fl (35.1-43.9); Red Blood Count 4.64 M/mm3 (4.2-5.4); White Blood Count 7.7 K/mm3 (4.4-11.0)
[2025-09-22 08:56] LABS: Cholesterol 185 mg/dL (<=200); Low Density Lipoprotein Calc. 111 mg/dL; Triglycerides 70 mg/dL; Very Low Density Lipoprotein 14 mg/dL (5-40); Vitamin D,25 Hydroxy 49.0 ng/mL (30-100); cholesterol:hdl ratio screen 3.06
== END | disposition home or self-care (01) ==
PROVIDERS: PCP Family Medicine; Referring Provider Obstetrics & Gynecology; Visit Provider Obstetrics & Gynecology
DX: R53.83 Other fatigue (principal); Z12.39 Encounter for other screening for malignant neoplasm of breast; Z13.220 Encounter for screening for lipoid disorders
CPT/HCPCS: 36415; 80061; 82306; 83036; 84443; 85025